=== PATIENT | male | born 1950 | race Caucasian/White ===

== ENCOUNTER → 2016-07-12 | Outpatient (CLI) | payer BC ==
[~2016-07-12] MED LIST: blood pressure PO; cholesterol PO
--- NOTE | 2016-07-12 10:28 | DIAGNOSTIC IMAGING REPORT ---
DOUBLE CONTRAST BARIUM ESOPHAGRAM CLINICAL HISTORY: Single episode of dysphagia with solids. COMPARISON STUDY: No priors. TECHNIQUE: A standard air contrast barium esophagram is performed. Multiple spot images of the esophagus are acquired both upright and prone. FINDINGS: The patient swallowed barium and the barium pill without difficulty. The mucosal pattern is normal. There is no evidence of intrinsic or extrinsic mass lesion. No aspiration was seen. The gastroesophageal junction distended normally. No gastroesophageal reflux could be elicited by having the patient perform the Valsalva maneuver. Fluoroscopy time: 1.1 minutes. Fluoroscopic images: 21 IMPRESSION: Normal barium esophagram. Electronically signed by: Mundo Berry M.D. 07/12/2016 10:26 AM Dictated Date/Time: 07/12/2016 10:25 AM
== END | disposition home or self-care (01) ==
LOC: C.RAD 09:23
PROVIDERS: ATTEND Internal Medicine
DX: R13.10 Dysphagia, unspecified (principal)

== ENCOUNTER → 2016-08-17 | Outpatient (CLI) | payer BC ==
[2016-08-17 09:34] LABS: BASO % 0.6 %; BASO ABS # 0.04 K/uL (0-0.2); COMPLETE YES; EOS % 3.1 %; HEMATOCRIT 41.1 % (42-52); IG% 0.2 %; LYMPH % 27.4 %; LYMPH ABS # 1.77 K/uL (1.2-3.4); MEAN CELL VOLUME 89.9 fL (80-100); MEAN CORPUSCULAR HEMOGLOBIN 30.2 pg (25-34); MEAN CORPUSCULAR HGB CONC 33.6 g/dl (32-36); MEAN PLATELET VOLUME 10.3 fL (7.4-10.4); MONO % 9.5 %; NEUT % 59.2 %; PLATELET COUNT 161 K/uL (130-400); RED BLOOD COUNT 4.57 M/uL (4.7-6.1); WHITE BLOOD COUNT 6.45 K/uL (4.8-10.8)
[2016-08-17 09:35] LABS: URINE APPEARANCE CLEAR (CLEAR); URINE BILIRUBIN NEG (NEG); URINE COLOR YELLOW; URINE EPITHELIAL CELL AUTO 0-5 /lpf (0-5); URINE NITRITE NEG (NEG); URINE SPECIFIC GRAVITY 1.014 (1.000-1.030); UROBILINOGEN NEG (NEG)
[2016-08-17 09:46] LABS: ALT/SGPT 22 U/L (12-78); AST/SGOT 15 U/L (15-37); BLOOD UREA NITROGEN 12 mg/dl (7-18); BUN/CREATININE RATIO 12.4 (10-20); CALCIUM 8.5 mg/dl (8.5-10.1); CARBON DIOXIDE 23 mmol/L (21-32); CHLORIDE 108 mmol/L (98-107); CREATININE 0.93 mg/dl (0.60-1.40); GLUCOSE 92 mg/dl (70-99); SODIUM 141 mmol/L (136-145)
[2016-08-17 09:47] LABS: MANUAL MICROSCOPIC REQUIRED? NO; REVIEW REQ? NO
[2016-08-17 09:52] LABS: ESTIMATED AVERAGE GLUCOSE 111 mg/dl; HA1C FLAG Normal (Normal)
[2016-08-17 09:57] LABS: CHOLESTEROL 188 mg/dl (0-200); CHOLESTEROL/HDL RATIO 2.7; HDL CHOLESTEROL 69 mg/dl; LDL CHOLESTEROL CALCULATED 89 mg/dl; TRIGLYCERIDES 149 mg/dl (0-150); URIC ACID 4.1 mg/dl (2.6-7.2); VERY LOW DENSITY LIPOPROT CALC 30 mg/dl
== END | disposition home or self-care (01) ==
LOC: C.LAB1850 06:44
PROVIDERS: ATTEND Internal Medicine
DX: E78.00 Pure hypercholesterolemia, unspecified (principal)

== ENCOUNTER → 2016-09-16 | Outpatient (CLI) | payer BC ==
--- NOTE | 2016-09-16 12:52 | DIAGNOSTIC IMAGING REPORT ---
CHEST 2 VIEWS ROUTINE CLINICAL HISTORY: R05 [id number] dyspnea COMPARISON STUDY: 06/27/2016 FINDINGS: Mild stable cardiomegaly. Lungs are considered clear. Several old healed right rib fractures. Moderate degenerative change thoracic spine. IMPRESSION: No acute process. Lungs are clear. Electronically signed by: Dewey Weldon M.D. 09/16/2016 12:51 PM Dictated Date/Time: 09/16/2016 12:51 PM
== END | disposition home or self-care (01) ==
LOC: C.RAD1850 12:40
PROVIDERS: ATTEND Internal Medicine
DX: R05 Cough (principal)

== ENCOUNTER 2019-09-08 09:21 | Inpatient (IN) ==
[2019-09-08] MEDS ORDERED: SODIUM CHLORIDE 0.9% 500 ML IV ONE ×2 (09:44→11:40)
[2019-09-08] MEDS ORDERED: dilTIAZem HCl 5 MG/ML 5 ML VIAL IV STA (09:53)
[2019-09-08 09:56] LABS: Basophils # (auto) 0.06 K/uL (0-0.2); Basophils % (auto) 0.5 %; Eosinophils # (auto) 0.55 K/uL (0-0.5); Eosinophils % (auto) 4.3 %; Hemoglobin 15.7 g/dL (14.0-18.0); Immature Granulocytes # (auto) 0.02 K/uL (0.00-0.02); Immature Granulocytes % (auto) 0.2 %; Lymphocytes # (auto) 1.04 K/uL (1.2-3.4); Lymphocytes % (auto) 8.2 %; Mean Corpuscular Hgb Conc 34.1 g/dL (32-36); Mean Corpuscular Volume 93.9 fL (80-100); Monocytes # (auto) 0.51 K/uL (0.11-0.59); Neutrophils # (auto) 10.53 K/uL (1.4-6.5); Neutrophils % (auto) 82.8 %; Platelet Count 199 K/uL (130-400); RDW Coefficient of Variation 13.1 % (11.5-14.5); RDW Standard Deviation 45.1 fL (36.4-46.3); White Blood Count 12.71 K/uL (4.8-10.8)
[2019-09-08 10:06] LABS: Partial Thromboplastin Ratio 0.8; Partial Thromboplastin Time 21.9 Seconds (21.0-31.0); Prothrombin Time 10.5 Seconds (9.0-12.0)
--- NOTE | 2019-09-08 10:08 | XRay Report ---
XR chest 1V portable CLINICAL HISTORY: 69 years-old Male presenting with Chest Pain. TECHNIQUE: Portable upright AP view of the chest was obtained. COMPARISON: 06/27/2016. FINDINGS: Cardiomediastinal silhouette normal. Pulmonary vascular engorgement. Bronchial wall cuffing. . Vascul ar and infrahilar opacities bilaterally. Normal lung aeration. No other focal opacity. No large effus ion or pneumothorax. Degenerative changes of the thoracic spine. Multiple old posterior right rib fra ctures as on prior exam. Upper abdomen normal. IMPRESSION: 1. Vascular engorgement and perihilar infiltrates could represent volume overload and developing pul monary edema versus atypical infection or reactive airways disease. Further evaluation with PA and la teral views could be obtained for better assessment. ACT 112: Negative or not required by law. Electronically signed by: Javier Lassiter M.D. 09/08/2019 10:07 AM
[2019-09-08 10:23] LABS: Albumin Globulin Ratio 0.9 (0.9-2); BUN Creatinine Ratio 12.2 (10-20); Bilirubin,Total 0.8 mg/dl (0.2-1); Calcium 9.4 mg/dl (8.5-10.1); Creatinine Clr Calc Pharmacy 70.6 ml/min; Est GFR (African American) 86.5; Est GFR (Non-African American) 74.6; Globulin 4.4 gm/dl (2.5-4.0); Phosphorus 4.2 mg/dl (2.5-4.9); Total Protein 8.4 gm/dl (6.4-8.2)
[2019-09-08 10:47] LABS: Influenza A virus by PCR Neg for Influ A (Neg); Influenza B virus by PCR Neg for Influ B (Neg)
[2019-09-08] MEDS ORDERED: Heparin IV Low Dose WITH Bolus IV STA (10:49)
[2019-09-08] MEDS ORDERED: OPTIRAY 320 125ml IV PRN (11:06)
[2019-09-08] MEDS ORDERED: HEPARIN SOD 5,000 UNIT/0.5 ML VIAL ONE (11:12)
[2019-09-08] MEDS: HEPARIN SODIUM/DEXTROSE 25,000 UNITS/500 ML BAG IV SCH (11:15)
[2019-09-08 11:17] LABS: Troponin I 0.074 ng/ml (0-0.045)
--- NOTE | 2019-09-08 11:18 | CT Scan Report ---
CT angio chest PE protocol CLINICAL HISTORY: 69 years-old Male presenting with shortness of breath and cough, clinical concern f or pulmonary embolus. TECHNIQUE: Multidetector CT angiography of the chest was performed after administration of intravenou s contrast. 3-D volumetric and/or maximum intensity projection (MIP) images were subsequently reconst ructed for review. IV contrast: 120 mL of Optiray 320. One or more dose lowering techniques were used consistent with the principles of ALARA (as low as reasonably achievable), including automatic expos ure control, mA or kV adjustment to individual patient size, and/or use of iterative reconstruction. COMPARISON: Chest x-ray from earlier today. CT DOSE (mGy.cm): The estimated cumulative dose is 432.47 mGy.cm. FINDINGS: Sat Instructor topogram: Unremarkable. Pulmonary vasculature: The study is suboptimal for the assessment of the pulmonary vascular tree secondary to respiratory mo tion artifact. Allowing for limited image quality, no central filling defect to suggest pulmonary emb olus. Main pulmonary artery is not enlarged. No flattening of the interventricular septum. No intraca rdiac filling defect. No reflux of contrast into the hepatic veins. Remaining chest: Soft tissues: Normal thyroid and thoracic inlet. Numerous small mediastinal and bilateral hilar lymph nodes, nonspecific and likely reactive. Atherosclerosis of the aorta. Trace aortic valve and mild co ronary artery calcification. No pericardial or pleural effusion. Upper abdomen normal. Lungs and airways: No pneumothorax. Central airways patent. Bronchial wall thickening diffusely. Pulm onary arteries are not significantly enlarged relative to adjacent bronchi. No interlobular septal th ickening. Groundglass peribronchial vascular opacities in the right upper lobe. Subpleural limited gr oundglass opacity in the anterior segment of the left upper lobe. The degree of respiratory motion ar tifact moderately degrades evaluation of the lung bases. Musculoskeletal: Multiple old posterior right rib fractures. Degenerative changes of the spine. Flowi ng anterior osteophytosis consistent with diffuse idiopathic skeletal hyperostosis. IMPRESSION: 1. Allowing for suboptimal image quality, no evidence of pulmonary embolus. 2. Patchy peribronchovascular groundglass infiltrates in the right upper lobe and limited subpleural /peripheral ground glass infiltrates in the left upper lobe. Findings are suggestive of an atypical i nfectious or inflammatory etiology. Notably, coronavirus is a diagnostic consideration in the appropr [facility] clinical setting. The report will be called/faxed according to standard departmental protocol. ACT 112: Negative or not required by law. Electronically signed by: Javier Lassiter M.D. 09/08/2019 11:17 AM
[2019-09-08] MEDS ORDERED: PNEUMOCOCCAL ADMINISTRATION CHARGE ONE (11:33)
[2019-09-08] MEDS ORDERED: PNEUMOCOCCAL POLYSACCHARIDES 25 MCG/0.5 ML VIAL/SYR IM ONE (11:33)
--- NOTE | 2019-09-08 12:21 | History & Physical Report ---
Date of Service September 08, 2019 Assessment & Plan (1) Pneumonia: Admit to PCU on telemetry, Vital signs every 4 hours, Blood cultures urine cultures pending, Started empirically ceftriaxone 2 g IV daily and doxycycline 100 mg IV twice daily for lung infiltrates possible pneumonia. Solu-Medrol 40 mg IV twice daily and taper down, Mehdiitussin was seen 10 mils every 6 hours as needed for cough, Xopenex HFA every 4 hours as needed inhaler DVT prophylaxis patient is on heparin drip with bolus because of atrial flutter, As already discussed above and CT angiogram's scan of the chest there was possibility/differential diagnoses of Covid 19 with groundglass opacities seen in left and right lung lobe, which was discussed with the department of infectious control at [facility] and based on other symptoms such as lack of fever, left cold runny nose and sore throat recommendation was that Covid 19 is less likely, and therefore airborne and contact precautions are not necessary. It is also recommended by the ID department that it is not necessary to call Department of Health at this time because the patient condition is less likely Covid 19. Full code Present on Admission?: Yes (2) Atrial flutter with rapid ventricular response: Patient was given diltiazem 15 mg IV x1 which converted him in normal sinus rhythm. Started heparin drip with bolus IV in the ER and continued. Plan to discontinue heparin drip in 24 hours Consult cardiology for abnormal EKG and elevated troponin Troponin x3 with EKG Started metoprolol tartrate 25 mg twice daily for rate control Present on Admission?: Yes (3) Elevated troponin: As discussed above TTE pending Trend down troponin Present on Admission?: Yes (4) Gout: Patient is not in flare. Stable. Continue allopurinol 100 mg p.o. every morning Present on Admission?: Yes (5) Hypercholesterolemia: Fasting lipid panel pending, continue simvastatin 10 mg p.o. nightly. Present on Admission?: Yes (6) Hypertension: Lisinopril 10 mg p.o. every morning Present on Admission?: Yes (7) Insomnia: Continue zolpidem 10 mg p.o. every afternoon as needed. Present on Admission?: Yes History of Present Illness Chief Complaint: palpitations, cough, congestion Primary Care Provider: Angus Yang MD The patient is a 69 years old male with past medical history of hypertension, hypercholesterolemia, diverticulosis who presents to the emergency room with a a flutter, shortness of breath, cough congestion that started approximately last night. Patient states that he has similar episodes approximately every months for the past 3 months but he did not go to the hospital. Patient traveled to [place] with his approximately 3 weeks ago and they were on the train. Patient said that there is no sick contact in the past 2 weeks and his is also doing well. There is nobody sick at home. 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 Patient denies fever, chills, chest pain, abdominal pain, frequency, urgency, sy ncope or near syncope. Labs are reviewed which shows: Sodium 135, potassium 4.8, chloride 104, carbon dioxide 23, anion gap 8, BUN 12, creatinine 1.02, GFR 74.6, glucose 101, hemoglobin from September 02 2024.4, lactate 0.9, calcium 9.4, phosphorus 4.2, total bilirubin 0.8, ALT 26, alkaline phosphatase 61, troponin 0.0 74, BNP 87, total protein 8.4, albumin 4, globulin 4.4, triglycerides 69, cholesterol 182, HDL 81, lipase 109.CTA of the chest confirmed no evidence of pulmonary embolus, patchy ryup-lvyqazw-honhdfhg groundglass infiltrates in the right upper lobe and limited subpleural/peripheral groundglass infiltrate in the left upper lobe. Findings are suggestive of a atypical infection or inflammatory etiology. Notably coronavirus is a diagnostic consideration in the appropriate clinical setting. Since there there was a slight suspicion of coronavirus this was discussed with infectious diseases and the whole chart reviewed. Per department infectious diseases personnel Magy it is less likely that patient is Covid19 virus infected since he does not have runny nose, sore throat, fever, his lymphocytes are normal, his PT is normal. She recommended that there is no indication to ca ll the Department of Health in regard of this case. The decision was made to admit patient to PCU on telemetry for acute respiratory failure with hypoxia and pneumonia, in addition to atrial flutter that already converted to sinus rhythm. Allergies Allergy/AdvReac Type Severity Reaction Status Date / Time shellfish derived Allergy Severe Anaphylaxis Verified 09/08/19 10:40 cat dander Allergy Verified 09/08/19 10:40 Home Medications Home Medications Medication Instructions Recorded Confirmed Type aspirin 81 mg PO QAM 12/05/18 09/08/19 History zolpidem 10 mg tablet 10 mg PO QPM PRN #30 tab 06/14/19 09/06/19 Rx albuterol sulfate 90 mcg/actuation 1 puffs INH Q6H PRN #8.5 gm 06/20/19 09/08/19 Rx aerosol inhaler lisinopril 10 mg tablet 10 mg PO QAM #30 tab 06/25/19 09/08/19 Rx allopurinol 100 mg tablet 100 mg PO QAM #90 tab 08/13/19 09/08/19 Rx simvastatin 10 mg tablet 10 mg PO HS #90 tab 08/13/19 09/08/19 Rx Past Med/Surg History Medical History Diverticular disease Diverticulosis, no h/o diverticulitis Gout Hyperlipidemia Hypertension Insomnia (Chronic) Surgical History History of colonoscopy History of tooth extraction Hx of vasectomy Family History Other No significant family history Social History Preferred Language: Georgian Communication Ability: Effective Crowning Inspector Required: No Beliefs That Will Affect Care: None marital status: Single Current Living Situation: Alone current occupational status: employed current occupation: Professor Other Information That Helps Us Care for You: No Feels Safe at Home: Yes Safety Concerns: Feels Safe At This Time Smoking Status: Former smoker Tobacco Type: cigarettes ; Do You Dip or Chew Tobacco: No ; Smoking End Date: 12/14/1972 ; Second Hand Exposure: No ; Tobacco Cessation Education Requested by Patient: No Hx Alcohol Use: Yes Alcohol type: beer Hx Substance Use: Yes substance use type: marijuana Substance Use Type Other:: chews Last Used Substance: Unknown Review of Systems Review of Systems: All systems reviewed & are unremarkable except as noted in HPI & below Physical Exam Constitutional: WD/WN, vitals as above well developed and + ill appearing Eyes: PERRL, conjunctivae normal, anicteric sclerae ENMT: external ear and nose normal, oropharynx normal Neck: trachea midline, no thyromegaly Respiratory: + respiratory distress, + labored breathing, + uses accessory muscles and + hyperresonance to percussion Auscultation: + crackles and + wheezes Cardiovascular: Rate/Rhythm: + irregularly irregular Heart Sounds: normal S1, normal S2 and + murmur Vessels: dorsalis pedis pulses present Gastrointestinal (Abdomen): normal bowel sounds, soft, nontender, no hepatosplenomegaly Musculoskeletal: no cyanosis or clubbing, extremities motor strength 5/5 Skin: no rashes, warm and dry Neurologic: patellar DTR's 2+ bilat, sensation intact Psychiatric: A+Ox3, euthymic affect Lymphatic: no cervical or axillary lymphadenopathy Results & Data Vital Signs (Past 12 Hours) Vital Signs Temp Pulse Pulse Resp BP BP Pulse Ox 09/08/19 11:30 144 H 16 128/85 97 09/08/19 11:20 112 H 97 09/08/19 11:19 112 H 22 132/83 97 09/08/19 11:17 113 H 132/83 97 09/08/19 10:50 102 H 15 94 09/08/19 10:40 100 H 20 94 09/08/19 10:36 106 H 18 138/86 94 09/08/19 10:30 102 H 18 138/86 94 09/08/19 10:20 98 H 24 94 09/08/19 10:10 96 H 97 H 10 L 130/97 93 09/08/19 10:05 151 H 20 130/97 96 09/08/19 10:00 152 H 23 98 09/08/19 09:50 157 H 26 H 96 09/08/19 09:44 154 H 27 H 93 09/08/19 09:40 158 H 28 H 92 09/08/19 09:33 94 09/08/19 09:31 153 H 159 H 24 152/114 H 152/114 H 93 09/08/19 09:22 36.7 C 150 H 36 H 177/125 H 94 Code Status & VTE Plan Code Status Full code VTE Prophylaxis Plan VTE Prophylaxis will be ordered: Yes PG Care Time/CCT Total # of Minutes Spent Total Time Spent with Patient: Total time spent is greater than 50% in coordination of care (as documented) at patient's floor/unit and/or counseling patient: Coding Level of Care Code 48308 Initial Inpt Care Lvl 3 Diagnoses Pneumonia J18.9 Atrial flutter with rapid ventricular response I48.92 Elevated troponin R79.89 Gout M10.9 Hypercholesterolemia E78.00 Hypertension I10 Insomnia G47.00
[2019-09-08 12:23] LABS: Appearance Urine Clear (Clear); Bilirubin Urine Negative (Negative); Blood Urine Negative (Negative); Color Urine Yellow; Glucose Urine UA Negative (Negative); Ketones Urine 2+ (Negative); Leukocyte Esterase Urine Negative (Negative); Nitrite Urine Negative (Negative); Protein Urine Negative (Negative); Specific Gravity Urine > 1.045 (1.000-1.030); Urobilinogen Urine Negative (Negative)
[2019-09-08] MEDS ORDERED: POLYETHYLENE (MIRALAX) 17 GM PACK PO PRN (13:53)
[2019-09-08] MEDS ORDERED: ALUMINUM/MAGNESIUM SUSP 30 ML UDC PO PRN (13:53)
[2019-09-08] MEDS ORDERED: ZOLPIDEM TARTRATE 10 MG TAB PO PRN (13:53)
[2019-09-08] MEDS ORDERED: MAGNESIUM HYDROXIDE SUSP 30 ML UDC PO PRN (13:53)
[2019-09-08] MEDS ORDERED: GUAIFENESIN/CODEINE 200MG/20MG 10ML UDC PO PRN (13:53)
[2019-09-08] MEDS ORDERED: ACETAMINOPHEN 325 MG TAB PO PRN (13:53)
[2019-09-08] MEDS ORDERED: ONDANSETRON INJ 2 MG/ML 2 ML VIAL IV PRN (13:53)
[2019-09-08] MEDS ORDERED: PERFLUTREN LIPID MICROSPHERE (DEFINITY) IV ONE (14:50)
[2019-09-08] MEDS: METOPROLOL TARTRATE 25 MG TAB PO SCH ×2 (14:51→21:33)
[2019-09-08] MEDS: cefTRIAXone SODIUM 2,000 MG in DEXTROSE 5% 50 ML IV SCH (14:51)
[2019-09-08] MEDS: ASPIRIN 81 MG ECTAB PO SCH (14:52)
[2019-09-08] MEDS: methylPREDNISolone 40 MG in SYRINGE 0 ML IV SCH (14:54)
[2019-09-08 15:31] LABS: Thyroid Stimulating Hormone 0.721 uIu/ml (0.300-4.500); Troponin I 0.442 ng/ml (0-0.045)
[2019-09-08] MEDS: DOXYCYCLINE HYCLATE 100 MG in DEXTROSE 5% 100 ML IV SCH (15:49)
--- NOTE | 2019-09-08 16:00 | XCELERA ---
[id number] \\[id number]
[2019-09-08] MEDS ORDERED: ASPIRIN 81 MG ECTAB PO ONE (16:45)
--- NOTE | 2019-09-08 16:55 | Emergency Department Note ---
Entered by Emani Dumont acting as a scribe for History of Present Illness General Chief complaint: Shortness of Breath/Dyspnea Stated complaint: SOB Time Seen by Provider: 09/08/19 09:33 Source: patient History of Present Illness Onset (ago): month(s) 8 Location: chest Pain Consistency: + other (persistent) Quality: + other (SOB) Associated symptoms: + cough (persistent) and + other (Positive congestion. Negative diarrhea); no fever/chills, no nausea/vomiting and no rash The patient is a 69 year old male who presents to the ED with complaints of SOB. 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 He states his episodes are normally intermittent however, this episode is longer than his previous. Pt denies any fevers, nausea, vomiting, diarrhea. He reports he has an allergy to shellfish where he becomes anaphylactic. He notes he did not have any symptoms of SOB or rashes last night. He is not on blood thinning medication. He notes he had an EKG done in May which was abnormal. Home Medications Home Medications Medication Instructions Recorded Confirmed Type aspirin 81 mg PO QAM 12/05/18 09/08/19 History zolpidem 10 mg tablet 10 mg PO QPM PRN #30 tab 06/14/19 09/06/19 Rx albuterol sulfate 90 mcg/actuation 1 puffs INH Q6H PRN #8.5 gm 06/20/19 09/08/19 Rx aerosol inhaler lisinopril 10 mg tablet 10 mg PO QAM #30 tab 06/25/19 09/08/19 Rx allopurinol 100 mg tablet 100 mg PO QAM #90 tab 08/13/19 09/08/19 Rx simvastatin 10 mg tablet 10 mg PO HS #90 tab 08/13/19 09/08/19 Rx Allergies Allergy/AdvReac Type Severity Reaction Status Date / Time shellfish derived Allergy Severe Anaphylaxis Verified 09/08/19 10:40 cat dander Allergy Verified 09/08/19 10:40 Past Med/Surg History Medical History Diverticular disease Diverticulosis, no h/o diverticulitis Gout Hyperlipidemia Hypertension Insomnia (Chronic) Surgical History History of colonoscopy History of tooth extraction Hx of vasectomy Family History Other No significant family history Social History Preferred Language: Azerbaijani Communication Ability: Effective Windows Admin Required: No Beliefs That Will Affect Care: None marital status: Single Current Living Situation: Alone current occupational status: employed current occupation: Professor Feels Safe at Home: Yes Smoking Status: Former smoker Tobacco Type: cigarettes ; Second Hand Exposure: No ; Hx Alcohol Use: Yes Alcohol type: beer Hx Substance Use: Yes substance use type: marijuana Substance Use Type Other:: chews Last Used Substance: Unknown Review of Systems See HPI for pertinent positives & negatives. and A total of 10 systems reviewed and were otherwise negative Physical Exam Vital Signs Vital Signs - 24 hr 09/08/19 09:22 09/08/19 09:31 09/08/19 09:33 Temperature 36.7 C Temperature Source Oral Pulse Rate 150 H 153 H Pulse Rate [Left] 159 H Pulse Rate from SpO2 Sensor 153 H Respiratory Rate 36 H 24 Respiratory Effort / Characteristics Non-Labored Spontaneous Respiratory Depth Shallow Blood Pressure 177/125 H 152/114 H Blood Pressure [Left Arm] 152/114 H Blood Pressure Mean 142 121 Blood Pressure Mean [Left Arm] 126 Blood Pressure Position [Left Arm] Lying Pulse Oximetry 94 93 94 Oxygen Delivery Method Room Air Nasal Cannula Room Air Oxygen Flow Rate 3 Sepsis Recent Fever Within 48 Hours No Sepsis New/Unexplained Change in Mental Status No Sepsis Action Taken by Nursing No Action Required 09/08/19 09:40 09/08/19 09:44 09/08/19 09:50 Temperature Temperature Source Pulse Rate 158 H 154 H 157 H Pulse Rate [Left] Pulse Rate from SpO2 Sensor 153 H 158 H Respiratory Rate 28 H 27 H 26 H Respiratory Effort / Characteristics Respiratory Depth Blood Pressure Blood Pressure [Left Arm] Blood Pressure Mean Blood Pressure Mean [Left Arm] Blood Pressure Position [Left Arm] Pulse Oximetry 92 93 96 Oxygen Delivery Method Room Air Oxygen Flow Rate 3 Sepsis Recent Fever Within 48 Hours Sepsis New/Unexplained Change in Mental Status Sepsis Action Taken by Nursing 09/08/19 09:53 09/08/19 10:00 09/08/19 10:05 Temperature Temperature Source Pulse Rate 152 H 151 H Pulse Rate [Left] Pulse Rate from SpO2 Sensor 152 H 154 H Respiratory Rate 23 20 Respiratory Effort / Characteristics Nasal Congestion Short of Breath Respiratory Depth Blood Pressure 130/97 Blood Pressure [Left Arm] Blood Pressure Mean 109 Blood Pressure Mean [Left Arm] Blood Pressure Position [Left Arm] Pulse Oximetry 98 96 Oxygen Delivery Method Oxygen Flow Rate Sepsis Recent Fever Within 48 Hours Sepsis New/Unexplained Change in Mental Status Sepsis Action Taken by Nursing 09/08/19 10:10 09/08/19 10:20 09/08/19 10:30 Temperature Temperature Source Pulse Rate 96 H 98 H 102 H Pulse Rate [Left] 97 H Pulse Rate from SpO2 Sensor 96 H 97 H 102 H Respiratory Rate 10 L 24 18 Respiratory Effort / Characteristics Non-Labored Spontaneous Respiratory Depth Blood Pressure 138/86 Blood Pressure [Left Arm] 130/97 Blood Pressure Mean 99 Blood Pressure Mean [Left Arm] 108 Blood Pressure Position [Left Arm] Lying Pulse Oximetry 93 94 94 Oxygen Delivery Method Nasal Cannula Oxygen Flow Rate 2 Sepsis Recent Fever Within 48 Hours Sepsis New/Unexplained Change in Mental Status Sepsis Action Taken by Nursing 09/08/19 10:36 09/08/19 10:40 09/08/19 10:50 Temperature Temperature Source Pulse Rate 100 H 102 H Pulse Rate [Left] 106 H Pulse Rate from SpO2 Sensor 99 H 102 H Respiratory Rate 18 20 15 Respiratory Effort / Characteristics Spontaneous Respiratory Depth Blood Pressure Blood Pressure [Left Arm] 138/86 Blood Pressure Mean Blood Pressure Mean [Left Arm] 103 Blood Pressure Position [Left Arm] Lying Pulse Oximetry 94 94 94 Oxygen Delivery Method Nasal Cannula Oxygen Flow Rate 2 Sepsis Recent Fever Within 48 Hours Sepsis New/Unexplained Change in Mental Status Sepsis Action Taken by Nursing GENERAL: Awake, alert, uncomfortable-appearing, in no distress HENT: Normocephalic, atraumatic. Oropharynx with dry mucous membranes and otherwise unremarkable. EYES: Normal conjunctiva. Sclera non-icteric. NECK: Supple. No nuchal rigidity. FROM. No JVD. RESPIRATORY: Scant intermittent wheezes otherwise clear. Tachypneic. CARDIAC: Tachycardic rate, normal rhythm. Extremities warm and well perfused. Pulses equal. ABDOMEN: Soft, non-distended. No tenderness to palpation. No rebound or guarding. No masses. RECTAL: Deferred. MUSCULOSKELETAL: Chest examination reveals no tenderness. The back is symmetrical on inspection without obvious abnormality. There is no CVA tenderness to palpation. No joint edema. LOWER EXTREMITIES: Calves are equal size bilaterally and non-tender. No edema. No discoloration. NEURO: Normal sensorium. No sensory or motor deficits noted. SKIN: No rash or jaundice noted. Course Course 935: Past medical records reviewed. The patient was evaluated in room C4. A complete history and physical exam was performed. 1015: I reevaluated the patient at this time. The patient is feeling better. Heart rate in 90s. Atrial flutter on monitor. 1045: Discussed the patient's case with Dr. Kovacs, [facility] Hospitalist. The p atient will be evaluated for further management. Administered Medications Aspirin (Ecotrin Ectab) 81 mg PO DAILY [facility] Stop: 10/08/19 14:29 Last Admin: 09/08/19 14:52 Dose: 81 mg Documented by: [id number] Heparin Sodium/Dextrose (Heparin Sodium/Dextrose) 25,000 units in 500 mls @ 21 mls/hr IV .[id number] QUITA; Protocol Stop: 10/08/19 10:59 Last Titration: 09/08/19 19:02 Dose: 1,050 units/hr, 21 mls/hr Documented by: [id number] Cosigned by: [id number] Titration: 09/08/19 18:31 Dose: 1,050 units/hr, 21 mls/hr Documented by: [id number] Cosigned by: [id number] Titration: 09/08/19 15:07 Dose: 900 units/hr, 18 mls/hr Documented by: [id number] Cosigned by: [id number] Admin: 09/08/19 11:15 Dose: 900 units/hr, 18 mls/hr Documented by: [id number] Cosigned by: [id number] Ceftriaxone Sodium 2,000 mg/ (Dextrose) 70 mls @ 100 mls/hr IV Q24H QUITA; Protocol Stop: 09/15/19 14:29 Last Infusion: 09/08/19 15:36 Dose: 0 mls/hr Documented by: [id number] Admin: 09/08/19 14:51 Dose: 100 mls/hr Documented by: [id number] Doxycycline Hyclate 100 mg/ (Dextrose) 110 mls @ 50 mls/hr IV Q12H QUITA Stop: 09/15/19 14:59 Last Infusion: 09/08/19 18:08 Dose: 0 mls/hr Documented by: [id number] Admin: 09/08/19 15:49 Dose: 50 mls/hr Documented by: [id number] Methylprednisolone 40 mg/ (Syringe) 0.64 mls @ 1.5 mls/min IV Q12H QUITA Stop: 10/08/19 14:59 Last Admin: 09/08/19 14:54 Dose: 1.5 mls/min Documented by: [id number] Metoprolol Tartrate (Lopressor) 25 mg PO BID QUITA Stop: 10/08/19 14:29 Last Admin: 09/08/19 14:51 Dose: 25 mg Documented by: [id number] Discontinued Medications Aspirin (Ecotrin Ectab) 81 mg PO NOW ONE Stop: 09/08/19 16:46 Last Admin: 09/08/19 17:52 Dose: 81 mg Documented by: [id number] Diltiazem HCl (Cardizem) 15 mg IV NOW STA Stop: 09/08/19 09:54 Last Admin: 09/08/19 10:03 Dose: 15 mg Documented by: [id number] Cosigned by: [id number] Heparin Sodium (Porcine) (Heparin Sodium (Porcine)) Confirm Administered Dose 5,000 units .ROUTE .STK-MED ONE Stop: 09/08/19 11:13 Last Admin: 09/08/19 11:15 Dose: 4,000 units Documented by: [id number] Cosigned by: [id number] Heparin Sodium/Dextrose () 1 ea IV NOW STA; Protocol Stop: 09/08/19 10:50 Last Admin: 09/08/19 11:15 Dose: 1 ea Documented by: [id number] Sodium Chloride (Nss) 500 mls @ 999 mls/hr IV .Q31M ONE Stop: 09/08/19 10:14 Last Infusion: 09/08/19 10:21 Dose: 0 mls/hr Documented by: [id number] Admin: 09/08/19 09:51 Dose: 999 mls/hr Documented by: [id number] Sodium Chloride (Nss) 500 mls @ 999 mls/hr IV .Q31M ONE Stop: 09/08/19 12:10 Last Infusion: 09/08/19 13:22 Dose: 0 mls/hr Documented by: [id number] Admin: 09/08/19 12:17 Dose: 999 mls/hr Documented by: [id number] Heparin Sodium (Porcine) 4,500 (units/ Syringe) 4.5 mls @ 10 mls/min IV ONE ONE Stop: 09/08/19 19:01 Last Admin: 09/08/19 19:02 Dose: 10 mls/min Documented by: [id number] Cosigned by: [id number] Ioversol (Optiray 320 125ml) 120 ml IV ONCE PRN PRN Reason: Interaction Checking Stop: 09/12/19 11:05 Last Admin: 09/08/19 11:07 Dose: 120 ml Documented by: [id number] Perflutren Lipid Microsphere (Definity) 2 ml IV ONCE ONE Stop: 09/08/19 14:51 Last Admin: 09/08/19 14:51 Dose: 2 ml Documented by: [id number] Critical Care Time Critical Care Time: Yes Total Critical Care Time: 65 I have personally spent greater than 65 minutes of critical care time in the dir ect management of this patient. This includes bedside care, interpretation of diagnostic studies, and testing, discussion with consultants, patient, and family members, and other required patient management activities. This 65 minutes is in excess of all separately billable procedures. Medical Decision Making Differential Diagnosis Differential diagnosis: Etiologies such as infections, reactive airway disease, pneumonia, pneumothorax, COPD, CHF, cardiac ischemia, pulmonary embolism, musculoskeletal, gastr ointestinal, as well as others were entertained. Medical Records Attestation: I reviewed the patient's medical records. Home Medications Current Medication List: was personally reviewed by me Laboratory Data Attestation: I reviewed the patient's lab results. Result diagrams: 09/08/19 09:40 09/08/19 09:40 Lab Results 09/08/19 09/08/19 09/08/19 Range/Units 09:40 09:40 09:40 WBC 12.71 H (4.8-10.8) K/uL RBC 4.90 (4.7-6.1) M/uL Hgb 15.7 (14.0-18.0) g/dL Hct 46.0 (42-52) % MCV 93.9 (80-100) fL MCH 32.0 (25-34) pg MCHC 34.1 (32-36) g/dL RDW Std Deviation 45.1 (36.4-46.3) fL RDW Coeff of Lali 13.1 (11.5-14.5) % Plt Count 199 (130-400) K/uL MPV 10.0 (7.4-10.4) fL Immature Gran % (Auto) 0.2 % Neut % (Auto) 82.8 % Lymph % (Auto) 8.2 % Hockley % (Auto) 4.0 % Eos % (Auto) 4.3 % Baso % (Auto) 0.5 % Immature Gran # (Auto) 0.02 (0.00-0.02) K/uL Neut # (Auto) 10.53 H (1.4-6.5) K/uL Lymph # (Auto) 1.04 L (1.2-3.4) K/uL [place]ockley # (Auto) 0.51 (0.11-0.59) K/uL Eos # (Auto) 0.55 H (0-0.5) K/uL Baso # (Auto) 0.06 (0-0.2) K/uL PT 10.5 (9.0-12.0) Seconds INR 1.0 (0.9-1.1) APTT 21.9 (21.0-31.0) Seconds PTT Ratio 0.8 Sodium 135 L (136-145) mmol/L Potassium (3.5-5.1) mmol/L Chloride 104 (98-107) mmol/L Carbon Dioxide 23 (21-32) mmol/L Anion Gap 8.0 (3-11) BUN 12 (7-18) mg/dl Creatinine 1.02 (0.6-1.4) mg/dl Est Cr Clr Drug Dosing 70.6 ml/min Est GFR ( Amer) 86.5 Est GFR (Non-Af Amer) 74.6 BUN/Creatinine Ratio 12.2 (10-20) Glucose 101 H (70-99) mg/dl Calcium 9.4 (8.5-10.1) mg/dl Phosphorus 4.2 (2.5-4.9) mg/dl Magnesium (1.8-2.4) mg/dl Total Bilirubin 0.8 (0.2-1) mg/dl AST (15-37) U/L ALT 26 (12-78) U/L Alkaline Phosphatase 61 (45-117) U/L Troponin I 0.074 H* (0-0.045) ng/ml NT-Pro-B Natriuret Pep 87 (0-900) pg/ml Total Protein 8.4 H (6.4-8.2) gm/dl Albumin 4.0 (3.4-5.0) gm/dl Globulin 4.4 H (2.5-4.0) gm/dl Albumin/Globulin Ratio 0.9 (0.9-2) Lipase 109 (73-393) U/L Influenza Type A (PCR) (Neg) Influenza Type B (PCR) (Neg) 09/08/19 Range/Units 10:00 WBC (4.8-10.8) K/uL RBC (4.7-6.1) M/uL Hgb (14.0-18.0) g/dL Hct (42-52) % MCV (80-100) fL MCH (25-34) pg MCHC (32-36) g/dL RDW Std Deviation (36.4-46.3) fL RDW Coeff of Lali (11.5-14.5) % Plt Count (130-400) K/uL MPV (7.4-10.4) fL Immature Gran % (Auto) % Neut % (Auto) % Lymph % (Auto) % [place]ock[place] % (Auto) % Eos % (Auto) % Baso % (Auto) % Immature Gran # (Auto) (0.00-0.02) K/uL Neut # (Auto) (1.4-6.5) K/uL Lymph # (Auto) (1.2-3.4) K/uL [place] # (Auto) (0.11-0.59) K/uL Eos # (Auto) (0-0.5) K/uL Baso # (Auto) (0-0.2) K/uL PT (9.0-12.0) Seconds INR (0.9-1.1) APTT (21.0-31.0) Seconds PTT Ratio Sodium (136-145) mmol/L Potassium (3.5-5.1) mmol/L Chloride (98-107) mmol/L Carbon Dioxide (21-32) mmol/L Anion Gap (3-11) BUN (7-18) mg/dl Creatinine (0.6-1.4) mg/dl Est Cr Clr Drug Dosing ml/min Est GFR ( Amer) Est GFR (Non-Af Amer) BUN/Creatinine Ratio (10-20) Glucose (70-99) mg/dl Calcium (8.5-10.1) mg/dl Phosphorus (2.5-4.9) mg/dl Magnesium (1.8-2.4) mg/dl Total Bilirubin (0.2-1) mg/dl AST (15-37) U/L ALT (12-78) U/L Alkaline Phosphatase (45-117) U/L Troponin I (0-0.045) ng/ml NT-Pro-B Natriuret Pep (0-900) pg/ml Total Protein (6.4-8.2) gm/dl Albumin (3.4-5.0) gm/dl Globulin (2.5-4.0) gm/dl Albumin/Globulin Ratio (0.9-2) Lipase (73-393) U/L Influenza Type A (PCR) Neg for Influ A (Neg) Influenza Type B (PCR) Neg for Influ B (Neg) Imaging Data Radiologist's Impression: Radiology results as stated below per my review and the radiologist's interpretation: XR chest 1V portable CLINICAL HISTORY: 69 years-old Male presenting with Chest Pain. TECHNIQUE: Portable upright AP view of the chest was obtained. COMPARISON: 06/27/2016. FINDINGS: Cardiomediastinal silhouette normal. Pulmonary vascular engorgement. Bronchial wall cuffing. . Vascular and infrahilar opacities bilaterally. Normal lung aeration. No other focal opacity. No large effusion or pneumothorax. Degenerative changes of the thoracic spine. Multiple old posterior right rib fractures as on prior exam. Upper abdomen normal. IMPRESSION: 1. Vascular engorgement and perihilar infiltrates could represent volume overload and developing pulmonary edema versus atypical infection or reactive airways disease. Further evaluation with PA and lateral views could be obtained for better assessment. ACT 112: Negative or not required by law. Electronically signed by: Javier Lassiter M.D. 09/08/2019 10:07 AM ECG Data Attestation: I personally reviewed and interpreted this ECG as follows: Indication: + SOB/dyspnea Rate (beats per minute): 152 Rhythm: + other (wide complex tachycardia ) ECG Intervals/blocks: + Left bundle branch block ECG Findings: + Other (no sgarbossa criteria, QT-c 534, QRS 134) Additional Comments: Repeat EKG done at 0946 shows that speed increased to 50 mm/sec, likely a flutter with LBBB Repeat EKG done at 1019 shows normal sinus rhythm, LBBB, no sgarbossa criteria, QT-c 480, QRS 134 Blood Pressure Blood Pressure Findings: Elevated blood pressure Blood Pressure Disposition: further management by hospitalist JIL Narrative The patient is a pleasant 69-year-old gentleman who presents emergency department with worsening shortness of breath and palpitations that began today in the setting of having intermittent transient episodes of similar symptoms in the setting of having mild cough congestion shortness of breath over the past week seen by PCP and thought to be related to allergies per HPI. On arrival the patient is uncomfortable mildly dyspneic with heart rate in the 150s and vital signs otherwise stable. On exam the patient appears clinically dry. He has a scant intermittent wheeze but is otherwise clear. EKG demonstrates wide-complex tachycardia which upon adjustment of time interval to 50 mm/s does appear consistent with atrial flutter with RVR. He was was given IV fluid hydration and 15mg of diltiazem with subsequent increase in rate to 90s. However, patient's left bundle branch block did persist,which does appear new from kimberly contreras's prior EKG in May/2019. CXR with Nonspecific findings of vascular engorgement versus perihilar infiltrates. Given the patient's persistent RVR throughout today could be related to mild venous congestion. WBC 12.7, nonspecific. H/H and platelets within normal limits. Chemistry without ac idosis. Electrolytes and LFTs unremarkable. Troponin is slightly elevated at 0.074 which could be related to demand in the setting of the patient's RVR. However given left bundle branch block reasonable to proceed with close monitoring/trending. Flu negative. The patient continue to feel improved after treatment with diltiazem. This was discussed with Dr. Kovacs, [facility] hospitalist who evaluate the patient for admission. We did agree that given the patient's CHADVASC score of 2, reasonable to proceed with Heparin for now. Patient denies history of bleeding. Agreeable with treatment plan and admission. Additionally, given the patient's mild troponin elevation in the setting of his tachycardia we did agree to proceed with CTA of the chest which was negative for PE however in the straight nonspecific patchy peribronchovascular groundglass infiltrates in the right upper lobe and limited subpleural/peripheral ground glass infiltrates in the left upper lobe. Of note, findings are consistent with atypical infection, which has broad differential and while coronavirus is suggested as 1 of these possible considerations given the patient's lack of exposures or travel this was thought to be less likely. Of note, nursing sugar refinery supervisor did review the patient's presentation with Infection control Marcella, and we agree that the patients nonspecific CT findings in the setting of lack of exposure history is not concerning for coronavirus at this time. Blood cultures drawn. Will defer ABX to admitting team. Cardiac monitoring: An order was placed for continuous cardiac monitoring. The monitor shows a rate of 152 with atrial flutter rhythm with RVR. LBBB. Impression & Plan Atrial flutter with rapid ventricular response, SOB (shortness of breath), Elevated troponin, LBBB (left bundle branch block) Discharge Plan Visit Data *Final* Discharge Date/Time: 09/08/19 13:20 Chief Complaint: Shortness of Breath/Dyspnea Stated Complaint: SOB ED Provider: Catalino Lazcano Discharge Problem: Atrial flutter with rapid ventricular response, SOB (shortness of breath), Elevated troponin, LBBB (left bundle branch block) Patient Disposition: Admitted As Inpatient Discharge Instructions Interventions: ED Discharge Assessment Last Done: 09/08/19 13:20 The scribe's documentation has been prepared under my direction and personally reviewed by me in its entirety. I confirm that the note above accurately reflects all work, treatment, procedures, and medical decision making performed by me.
[2019-09-08 17:41] LABS: Partial Thromboplastin Ratio 1.3; Partial Thromboplastin Time 35.6 Seconds (21.0-31.0)
[2019-09-08] MEDS ORDERED: HEPARIN IV BOLUS 4,500 UNITS in SYRINGE 0 ML IV ONE (19:00)
[2019-09-08] MEDS ORDERED: SIMVASTATIN 10 MG TAB PO SCH (21:00)
[2019-09-08] MEDS: ATORVASTATIN 40 MG TAB PO SCH (21:33)
[2019-09-09] MEDS: DOXYCYCLINE HYCLATE 100 MG in DEXTROSE 5% 100 ML IV SCH ×2 (01:59→14:32)
[2019-09-09] MEDS: methylPREDNISolone 40 MG in SYRINGE 0 ML IV SCH ×2 (01:59→14:32)
[2019-09-09 03:42] LABS: Basophils # (auto) 0.01 K/uL (0-0.2); Basophils % (auto) 0.3 %; Eosinophils # (auto) 0.01 K/uL (0-0.5); Eosinophils % (auto) 0.3 %; Hematocrit (blood only) 40.8 % (42-52); Hemoglobin 13.9 g/dL (14.0-18.0); Immature Granulocytes # (auto) 0.01 K/uL (0.00-0.02); Immature Granulocytes % (auto) 0.3 %; Lymphocytes # (auto) 0.47 K/uL (1.2-3.4); Lymphocytes % (auto) 13.3 %; Mean Corpuscular Hemoglobin 31.7 pg (25-34); Mean Corpuscular Hgb Conc 34.1 g/dL (32-36); Mean Corpuscular Volume 92.9 fL (80-100); Mean Platelet Volume 10.2 fL (7.4-10.4); Monocytes # (auto) 0.11 K/uL (0.11-0.59); Monocytes % (auto) 3.1 %; Neutrophils # (auto) 2.93 K/uL (1.4-6.5); Neutrophils % (auto) 82.7 %; Platelet Count 183 K/uL (130-400); RDW Coefficient of Variation 13.1 % (11.5-14.5); RDW Standard Deviation 44.5 fL (36.4-46.3); Red Blood Count 4.39 M/uL (4.7-6.1); White Blood Count 3.54 K/uL (4.8-10.8)
[2019-09-09 03:54] LABS: Albumin Level 3.2 gm/dl (3.4-5.0); BUN Creatinine Ratio 14.3 (10-20); Calcium 8.8 mg/dl (8.5-10.1); Creatinine Clr Calc Pharmacy 75.8 ml/min; Est GFR (African American) 94.3; Est GFR (Non-African American) 81.3; Potassium 4.2 mmol/L (3.5-5.1)
[2019-09-09 04:00] LABS: Albumin Globulin Ratio 0.9 (0.9-2); Bilirubin,Total 0.7 mg/dl (0.2-1); Globulin 3.6 gm/dl (2.5-4.0); Total Protein 6.8 gm/dl (6.4-8.2)
[2019-09-09 04:01] LABS: Partial Thromboplastin Time 55.2 Seconds (21.0-31.0)
[2019-09-09] MEDS: LEVALBUTEROL TARTRATE 15 GM HFA.AER.AD INH SCH ×6 (05:38→21:10)
[2019-09-09] MEDS ORDERED: ALBUT/IPRATROP 3MG/0.5MG NEB 3 ML VIAL NEB PRN (05:43)
[2019-09-09] MEDS: ASPIRIN 81 MG ECTAB PO SCH (08:41)
[2019-09-09] MEDS: allopurinoL 100 MG TAB PO SCH (08:41)
[2019-09-09] MEDS: METOPROLOL TARTRATE 25 MG TAB PO SCH ×2 (08:41→21:27)
[2019-09-09] MEDS: lisinopriL 10 MG TAB PO SCH (08:42)
[2019-09-09] MEDS: FLUTICASONE/VILANTEROL 200/25MCG 14 PUFFS/INHALER INH SCH (08:44)
[2019-09-09] MEDS ORDERED: ASPIRIN 81 MG ECTAB PO SCH (09:00)
[2019-09-09] MEDS: HEPARIN SODIUM/DEXTROSE 25,000 UNITS/500 ML BAG IV SCH (11:17)
--- NOTE | 2019-09-09 12:45 | Cardiology Consultation ---
Date of Consultation September 09, 2019 Assessment & Plan (1) Cardiomyopathy: He presents with a cardiomyopathy which has not been identified before and with lack of symptoms despite being quite active suggesting that it may be somewhat longstanding rather than acute. His small enzyme rise does not explain it, unless he has had prior myocardial infarction's all that seems a little unlikely. We need to exclude reversible causes, and he needs a cardiac catheterization to determine whether he does have significant coronary artery disease. It may be due to the left bundle branch block. (2) Elevated troponin: He has a slightly elevated troponin this admission which I doubt is related to the cardiomyopathy at this time. He could have coronary disease and could have had small myocardial infarction's in the past but he has no history of it and I think that is less likely. Another possibility is that his tachycardia on presentation resulted in the small enzyme rise, either with nonobstructive coronary disease or with no coronary artery disease. I have scheduled him for catheterization tomorrow. (3) LBBB (left bundle branch block): He presents now with a left bundle branch block which is new since May 22, 2019. This could be a result of his cardiomyopathy or even a cause of his cardiomyopathy although based on timing I do not know that he would have enough time for a left bundle branch block to cause the degree of left ventricular dysfunction he currently has but it is a possibility. (4) SOB (shortness of breath): His shortness of breath is interesting in that one would expect him to have heart failure but his BNP is normal, his chest x-ray does not look like congestive heart failure and his symptoms evidently responded to a nebulizer t reatment and he and his describe expiratory wheezing. I wonder if he has a separate pulmonary condition resulting in his presentation rather than congestive heart failure. He is feeling well now. (5) SVT (supraventricular tachycardia): He presented with some type of wide-complex tachycardia at 150 bpm, the QRS complexes identical to his underlying rhythm therefore this appears to be in SVT. He was in it when he came in, and terminated and then restarted for a brief time before terminating again. I suspect it is a reentrant SVT not atrial flutter (it is regular so I do not suspect atrial fibrillation). Interestingly he did not feel it so it may be a longstanding arrhythmia. We will be starting beta-blockade here which may treat this arrhythmia, if not he may need further evaluation and treatment of it. I doubt it has anything to do with his cardiomyopathy. History of Present Illness Attending Physician: Benitez Portillo MD History of Present Illness This is a 69-year-old gentleman who has a history of hypertension, hypercholesterolemia and diverticulosis who presented with cough and shortness of breath. He also was aware of a rapid heart rate. CT scan of the chest showed no pulmonary embolism, chest x-ray suggested some patchy infiltrates suggestive of infection or inflammation. He did not appear to be in congestive heart failure but evaluation included troponins which were somewhat elevated as well as an echocardiogram which showed some degree of left ventricular dysfunction as well as electrocardiography which showed a left bundle branch block. Of note a prior electrocardiogram done May 22, 2019 did not show left bundle branch block. He presented with a wide-complex tachycardia which appears to be SVT with a left bundle branch block pattern at a heart rate of about 150 bpm. On discussing symptoms with the patient he is very active, he was a runner in the past and works out regularly and has no difficulty with those activities. He has not noticed palpitations until this presentation. [employer] his presentation with shortness of breath he had no difficulty with exertion and that appeared quite recent and his and he had noticed some wheezing and there was a suspicion this might represent bronchospasm as well. He has no peripheral edema, no orthopnea or PND. He has specifically no exertional chest discomfort. Allergies Allergy/AdvReac Type Severity Reaction Status Date / Time shellfish derived Allergy Severe Anaphylaxis Verified 09/08/19 10:40 cat dander Allergy Verified 09/08/19 10:40 Home Medications Home Medications Medication Instructions Recorded Confirmed Type aspirin 81 mg PO QAM 12/05/18 09/08/19 History zolpidem 10 mg tablet 10 mg PO QPM PRN #30 tab 06/14/19 09/06/19 Rx allopurinol 100 mg tablet 100 mg PO QAM #90 tab 08/13/19 09/08/19 Rx atorvastatin 40 mg PO QPM #30 tab 09/11/19 Rx cefdinir 300 mg PO BID #6 cap 09/11/19 Rx doxycycline hyclate 100 mg PO BID #6 tab 09/11/19 Rx fluticasone furoate-vilanterol 1 ea INHALATION DAILY #28 ea 09/11/19 Rx [Breo Ellipta] levalbuterol tartrate [Xopenex HFA] 2 puff INHALATION QID PRN #15 gm 09/11/19 Rx lisinopril 20 mg PO QAM #30 tab 09/11/19 Rx metoprolol succinate 100 mg PO DAILY #30 tab 09/11/19 Rx prednisone 40 mg PO DAILY #10 tab 09/11/19 Rx Patient History Medical History Diverticular disease Diverticulosis, no h/o diverticulitis Gout Hyperlipidemia Hypertension Insomnia (Chronic) Surgical History History of colonoscopy History of tooth extraction Hx of vasectomy Family History Other No significant family history Social History Preferred Language: Romanian Communication Ability: Effective 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 HEENT: Unremarkable Neck: No jugular venous distention, carotid pulses are normal and equal bilaterally without bruits. Pulmonary: Clear to auscultation bilaterally. Cardiac: Regular rhythm with no murmur, gallop or rub. Abdomen: Soft, nontender with normal bowel sounds. Extremities: No edema. Distal pulses intact. Neurologic: No focal findings. Gait is steady. Skin: No rash, ecchymoses or petechiae. Results & Data ([facility]) Vital Signs (Past 12 Hours) Vital Signs Temp Pulse Pulse Resp BP BP Pulse Ox 09/09/19 11:14 36.7 C 67 16 147/79 H 96 09/09/19 08:00 36.6 C 70 18 135/80 95 09/09/19 06:00 71 20 91 09/09/19 03:02 36.5 C 64 18 132/85 94 Laboratory Results Cardiac Enzymes 09/08/19 09/08/19 09/09/19 Range/Units 14:45 20:09 01:56 AST (15-37) U/L Troponin I 0.442 H* 0.279 H* 0.178 H* (0-0.045) ng/ml 09/09/19 Range/Units 01:56 AST 20 (15-37) U/L Troponin I (0-0.045) ng/ml Coagulation 09/08/19 09/09/19 Range/Units 17:17 01:56 APTT 35.6 H 55.2 H* (21.0-31.0) Seconds Lipids 09/09/19 Range/Units 01:56 Triglycerides 48 (0-150) mg/dl Cholesterol 160 (0-200) mg/dl HDL Cholesterol 76 mg/dl Cholesterol/HDL Ratio 2 CBC 09/09/19 Range/Units 01:56 WBC 3.54 L D (4.8-10.8) K/uL RBC 4.39 L (4.7-6.1) M/uL Hgb 13.9 L (14.0-18.0) g/dL Hct 40.8 L (42-52) % Plt Count 183 (130-400) K/uL Neut # (Auto) 2.93 (1.4-6.5) K/uL Lymph # (Auto) 0.47 L (1.2-3.4) K/uL [place] # (Auto) 0.11 (0.11-0.59) K/uL Eos # (Auto) 0.01 (0-0.5) K/uL Baso # (Auto) 0.01 (0-0.2) K/uL Comprehensive Metabolic Panel 09/09/19 Range/Units 01:56 Sodium 136 (136-145) mmol/L Potassium 4.2 (3.5-5.1) mmol/L Chloride 104 (98-107) mmol/L Carbon Dioxide 25 (21-32) mmol/L BUN 14 (7-18) mg/dl Creatinine 0.95 (0.6-1.4) mg/dl Glucose 139 H (70-99) mg/dl Calcium 8.8 (8.5-10.1) mg/dl AST 20 (15-37) U/L ALT 22 (12-78) U/L Alkaline Phosphatase 53 (45-117) U/L Total Protein 6.8 (6.4-8.2) gm/dl Albumin 3.2 L (3.4-5.0) gm/dl Intake and Output 09/08/19 09/09/19 09/09/19 21:59 06:59 14:59 Intake Total 150.50 / 150.50 Balance 150.50 / 150.50 Intake: IV 150.50 / 150.50 Vibramycin 100 mg In D5 100 ml @ 50 mls/hr IV Q12H QUITA Rx#: [id number] HEPARIN SODIUM/DEXTROSE 25,000 150.50 / 150.50 units In 500 ml @ 1,050 UNITS/ HR 21 mls/hr IV .[id number] QUITA Rx #:[id number] Rocephin 2,000 mg In D5w 50 ml @ 100 mls/hr IV Q24H QUITA Rx#: [id number] Oral Other: Weight PG Care Time/CCT Total # of Minutes Spent Total Time Spent with Patient: Total time spent is greater than 50% in coordination of care (as documented) at patient's floor/unit and/or counseling patient: Coding Level of Care Code 11280 Initial Inpt Care Lvl 3 Diagnoses Cardiomyopathy I42.9 Elevated troponin R79.89 LBBB (left bundle branch block) I44.7 SOB (shortness of breath) R06.02 SVT (supraventricular tachycardia) I47.1
[2019-09-09] MEDS: SODIUM CHLORIDE 0.9% 1000ML 1,000 ML IV SCH (13:48)
[2019-09-09] MEDS: cefTRIAXone SODIUM 2,000 MG in DEXTROSE 5% 50 ML IV SCH (13:49)
--- NOTE | 2019-09-09 16:02 | Hospitalist Progress Note ---
Date of Service September 09, 2019 Assessment & Plan (1) Pneumonia: CXR shows patchy peribronchovascular groundglass infiltrates in the right upper lobe and limited subpleural/peripheral ground glass infiltrates in the left upper lobe. Atypical infectious or inflammatory etiology are possible. Pr ocalcitonin was 0.07 on admission. - Presently on ceftriaxone, doxycycline, and steroids - Will taper steroids - Continue abx for now - Initial concern for coronavirus. 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 Additionally, he has not had any fevers at home or in the hospital. (2) SVT (supraventricular tachycardia): Presented with a wide complex tachycardia; however, he now has a new LBBB. The thought is this is a reentrant SVT vs. atrial flutter with aberrancy. - HR was ~150 on admission; he was given diltiazem and switched to sinus with a normal HR. - Has had 1 self-resolving episode today which only lasted <1 minute. - Continue telemetry -> Give diltiazem if he goes into rhythm again. (3) Cardiomyopathy: EF found to be 30-35% on this admission with regional wall motion abnormalities. - Seen by cardiology -> Posit this could be tachycardia-related, LBBB-related, or ischemic. - Continue beta-hemant & ACEi - Plan for catheterization as early as tomorrow with cardiology (4) Elevated troponin: Troponin initially checked after admission for tachycardia. Noted to be 0.44. Has trended down since. New LBBB. - Continue ASA, beta-hemant - Continue heparin gtt for now - Plan for cath as above (5) Hypertension: BP is 130/70 today. - Continue beta-hemant, ACEi (6) Gout: Patient is not in flare. Stable. - Continue allopurinol (7) Hypercholesterolemia: - Continue simvastatin (8) Insomnia: - Continue zolpidem PRN (9) DVT prophylaxis: On heparin gtt for thought of NSTEMI Admission and Anticipated Discharge Date Admission Date: September 08, 2019 Subjective Had another episode overnight where he got short of breath. He spent about two hours short of breath, then finally asked for a DuoNeb and said the shortness of breath resolved right away afterward. Reports no fevers/chills, chest pain, abdominal pain, nausea, or vomiting. Physical Exam Constitutional: WD/WN, vitals as above Eyes: EOM intact bilaterally; no conjunctival abnormality ENMT: external ear and nose normal, oropharynx normal Neck: trachea midline, no thyromegaly normal visual inspection Respiratory: normal respiratory effort, lungs clear to auscultation no respiratory distress Cardiovascular: RRR, no murmur, no edema Gastrointestinal (Abdomen): Inspection/Auscultation: abdomen normal to inspection; abdomen not distended Musculoskeletal: no cyanosis or clubbing, extremities motor strength 5/5 Skin: no rashes, warm and dry Neurologic: moves all extremities and awake Psychiatric: Orientation: alert, oriented to person and cooperative Results & Data ([facility]) Vital Signs (Past 12 Hours) Vital Signs Temp Pulse Resp BP BP Pulse Ox 09/09/19 15:18 36.3 C L 77 20 132/74 97 09/09/19 14:18 88 120/75 09/09/19 11:14 36.7 C 67 16 147/79 H 96 09/09/19 08:00 36.6 C 70 18 135/80 95 09/09/19 06:00 71 20 91 PG Care Time/CCT Total # of Minutes Spent Total Time Spent with Patient: Total time spent is greater than 50% in coordination of care (as documented) at patient's floor/unit and/or counseling patient: Coding Level of Care Code 83335 Subseq Hosp Care Lvl 3 Diagnoses Pneumonia J18.9 SVT (supraventricular tachycardia) I47.1 Cardiomyopathy I42.9 Elevated troponin R79.89 Hypertension I10 Gout M10.9 Hypercholesterolemia E78.00 Insomnia G47.00 DVT prophylaxis Z29.9
--- NOTE | 2019-09-09 19:03 | Billing Data ---
Date of Service September 09, 2019 Coding Level of Care Code 35963 Prolonged Care (int'l) Comment In the patient's room discussing care from 8:00am to 8:15am and 6:00pm to 6:30pm.
[2019-09-09] MEDS: ATORVASTATIN 40 MG TAB PO SCH (21:27)
[2019-09-10] MEDS: DOXYCYCLINE HYCLATE 100 MG in DEXTROSE 5% 100 ML IV SCH ×2 (03:00→14:42)
[2019-09-10 06:13] LABS: Estimated Average Glucose 111 mg/dl; Hemoglobin A1C 5.5 % (4.5-5.6)
[2019-09-10] MEDS: METOPROLOL TARTRATE 25 MG TAB PO SCH (07:50)
[2019-09-10] MEDS: predniSONE 20 MG TAB PO SCH (07:50)
--- NOTE | 2019-09-10 07:51 | Hospitalist Progress Note ---
Date of Service September 10, 2019 Assessment & Plan (1) Cardiomyopathy: EF found to be 30-35% on this admission with regional wall motion abnormalities. LHC on 09/09 showed minimal CAD; NOT thought to be ischemic cardiomyopathy. A1c, TSH, cortisol, and iron studies were all normal this admission. - Seen by cardiology -> Posit this could be tachycardia-related or LBBB-related. - Continue beta-hemant & ACEi -> To be optimized by cardiology. - Also ordering variety of cardiomyopathy labs including HIV, SPEP/UPEP, light chains. Considering a Holter/loop recorder to monitor tachycardia burden, but may optimize meds first, then try. - Respiratory viral panel pending as well, though it seems like viral myocarditis is thought to be less likely. (2) Elevated troponin: Troponin initially checked after admission for tachycardia. Noted to be 0.44. Has trended down since. New LBBB. - Continue ASA, beta-hemant - As above (3) Pneumonia: CXR shows patchy peribronchovascular groundglass infiltrates in the right upper lobe and limited subpleural/peripheral ground glass infiltrates in the left upper lobe. Atypical infectious or inflammatory etiology are possible. Procalcitonin was 0.07 on admission. He had what sounds like an episode of bronchospasm overnight on 09/08. - Presently on ceftriaxone, doxycycline, and steroids - Will taper steroids -> Will continue given his possible bronchospasm episode. - Continue abx for now - Initial concern for coronavirus. 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 Additionally, he has not had any fevers at home or in the hospital. (4) SVT (supraventricular tachycardia): Presented with a wide complex tachycardia; however, he now has a new LBBB. The thought is this is a reentrant SVT vs. atrial flutter with aberrancy. - HR was ~150 on admission; he was given diltiazem and switched to sinus with a normal HR. - Has had multiple self-resolving episodes during his admission which only last <1 minute. - Continue telemetry; consider outpatient monitoring per cardiology -> Give diltiazem if he goes into rhythm again. (5) Hypertension: BP is 110/70 today. - Continue beta-hemant, ACEi (6) Gout: Patient does not have a flare presently. Stable. - Continue allopurinol (7) Hypercholesterolemia: - Continue statin (8) Insomnia: - Continue zolpidem PRN (9) DVT prophylaxis: Lovenox 40mg SQ daily Admission and Anticipated Discharge Date Admission Date: September 08, 2019 Subjective Doing well today. No wheezing at all. No need for breathing treatment. No swelling in the legs. Feels well. Reports no fevers/chills, chest pain, shortness of breath, abdominal pain, nausea, or vomiting. Physical Exam Constitutional: WD/WN, vitals as above Eyes: EOM intact bilaterally; no conjunctival abnormality ENMT: external ear and nose normal, oropharynx normal Neck: trachea midline, no thyromegaly normal visual inspection Respiratory: normal respiratory effort, lungs clear to auscultation no respiratory distress Cardiovascular: RRR, no murmur, no edema Gastrointestinal (Abdomen): Inspection/Auscultation: abdomen normal to inspection; abdomen not distended Musculoskeletal: no cyanosis or clubbing, extremities motor strength 5/5 Skin: no rashes, warm and dry Neurologic: moves all extremities and awake Psychiatric: Orientation: alert, oriented to person and cooperative Results & Data ([facility]) Vital Signs (Past 12 Hours) Vital Signs Temp Pulse Resp BP Pulse Ox 09/10/19 07:27 36.4 C L 69 20 158/91 H 96 09/10/19 03:33 36.4 C L 70 16 132/83 97 09/09/19 23:10 36.4 C L 78 16 142/85 H 96 PG Care Time/CCT Total # of Minutes Spent Total Time Spent with Patient: Total time spent is greater than 50% in coordination of care (as documented) at patient's floor/unit and/or counseling patient: Coding Level of Care Code 06611 Subseq Hosp Care Lvl 3 Diagnoses Cardiomyopathy I42.9 Elevated troponin R79.89 Pneumonia J18.9 SVT (supraventricular tachycardia) I47.1 Hypertension I10 Gout M10.9 Hypercholesterolemia E78.00 Insomnia G47.00 DVT prophylaxis Z29.9
[2019-09-10 08:07] LABS: Basophils # (auto) 0.01 K/uL (0-0.2); Basophils % (auto) 0.1 %; Hematocrit (blood only) 42.8 % (42-52); Hemoglobin 14.8 g/dL (14.0-18.0); Immature Granulocytes # (auto) 0.02 K/uL (0.00-0.02); Immature Granulocytes % (auto) 0.2 %; Lymphocytes # (auto) 1.43 K/uL (1.2-3.4); Lymphocytes % (auto) 11.9 %; Mean Corpuscular Hemoglobin 32.2 pg (25-34); Mean Corpuscular Hgb Conc 34.6 g/dL (32-36); Mean Platelet Volume 9.9 fL (7.4-10.4); Monocytes # (auto) 0.76 K/uL (0.11-0.59); Monocytes % (auto) 6.3 %; Neutrophils # (auto) 9.76 K/uL (1.4-6.5); Neutrophils % (auto) 81.5 %; Platelet Count 187 K/uL (130-400); RDW Coefficient of Variation 13.3 % (11.5-14.5); White Blood Count 11.98 K/uL (4.8-10.8)
[2019-09-10 08:17] LABS: Partial Thromboplastin Ratio 0.8; Partial Thromboplastin Time 22.9 Seconds (21.0-31.0)
[2019-09-10] MEDS ORDERED: HEPARIN (PORCINE) 1000 UNIT/ML 10 ML (CATH LAB USE ONLY) ONE (08:18)
[2019-09-10] MEDS ORDERED: NiCARDipine HCL INJ 2.5 MG/ML 10 ML AMP ONE (08:19)
[2019-09-10] MEDS ORDERED: fentaNYL citrate 100 MCG/2 ML VIAL ONE (08:19)
[2019-09-10] MEDS ORDERED: NITROGLYCERIN/D5W 100MCG/ML 20ML SYR ONE (08:19)
[2019-09-10] MEDS ORDERED: MIDAZOLAM HCL 1 MG/ML 2ML VIAL ONE (08:19)
[2019-09-10] MEDS ORDERED: ASPIRIN 81 MG CHEW ONE (08:22)
[2019-09-10 08:38] LABS: Albumin Globulin Ratio 0.8 (0.9-2); Albumin Level 3.5 gm/dl (3.4-5.0); BUN Creatinine Ratio 10.2 (10-20); Bilirubin,Total 0.7 mg/dl (0.2-1); Calcium 9.1 mg/dl (8.5-10.1); Creatinine Clr Calc Pharmacy 74.2 ml/min; Est GFR (African American) 91.9; Est GFR (Non-African American) 79.3; Ferritin 125.9 ng/ml (8-388); Globulin 4.2 gm/dl (2.5-4.0); Phosphorus 3.4 mg/dl (2.5-4.9); Potassium 3.8 mmol/L (3.5-5.1); Total Protein 7.7 gm/dl (6.4-8.2)
[2019-09-10] MEDS ORDERED: DiphenhydrAMINE HCL 50 MG/ML VIAL ONE (08:59)
[2019-09-10] MEDS ORDERED: HydrALAZINE HCL 20 MG/ML VIAL ONE (09:05)
[2019-09-10] MEDS: ASPIRIN 81 MG ECTAB PO SCH (09:32)
--- NOTE | 2019-09-10 09:57 | Pre Anesthesia Assessment ---
Date of Service September 10, 2019 Pre Sedation Assessment Vital Signs Temp Pulse Pulse Resp BP BP Pulse Ox 09/10/19 09:45 68 20 132/80 97 09/10/19 09:30 71 20 137/86 98 09/10/19 08:19 72 16 161/93 H 98 09/10/19 07:27 36.4 C L 69 20 158/91 H 96 09/10/19 03:33 36.4 C L 70 16 132/83 97 09/09/19 23:10 36.4 C L 78 16 142/85 H 96 09/09/19 18:55 36.3 C L 88 19 149/82 H 97 09/09/19 16:00 76 09/09/19 15:18 36.3 C L 77 20 132/74 97 09/09/19 14:18 88 120/75 09/09/19 11:14 36.7 C 67 16 147/79 H 96 Cardiovascular RRR, no murmur, no edema + ulnar pulses present + capillary refill normal Respiratory normal respiratory effort, lungs clear to auscultation Pre-Sedation Airway Assessment Smoking Status: Former smoker Hx Sleep Apnea: No Short, Thick Neck: No Thyromental Distance: > or= 3.5 Finger Breadths Oral Cavity: + Capped Teeth Mallampati Class: II ASA: ASA3 NPO Status Date of Last Intake of Fluids: 09/09/19 Time of Last Intake of Fluids: 22:00 Date of Last Intake of Solid Food: 09/09/19 Time of Last Intake of Solid Foods: 22:00 Procedure Planning Contraindications for Sedation: none Current Medications Reviewed: Yes Notes The planned sedation has been discussed with the patient. Informed Consent was obtained. I have identified the patient, determined the appropriateness of sedation and have assessed the patient immediately prior to the procedure. All medicine(s) and interventions are by my order.
--- NOTE | 2019-09-10 09:58 | Post Anesthesia Assessment ---
Date of Service September 10, 2019 Post Sedation Assessment Vital Signs Temp Pulse Pulse Resp BP BP Pulse Ox 09/10/19 09:45 68 20 132/80 97 09/10/19 09:30 71 20 137/86 98 09/10/19 08:19 72 16 161/93 H 98 09/10/19 07:27 36.4 C L 69 20 158/91 H 96 09/10/19 03:33 36.4 C L 70 16 132/83 97 09/09/19 23:10 36.4 C L 78 16 142/85 H 96 09/09/19 18:55 36.3 C L 88 19 149/82 H 97 09/09/19 16:00 76 09/09/19 15:18 36.3 C L 77 20 132/74 97 09/09/19 14:18 88 120/75 09/09/19 11:14 36.7 C 67 16 147/79 H 96 Recovery Score Activity: Moves 4 extremities Respiration: Deep Breath/Cough Circulation: +/-20% PreAnes Value Consciousness: Fully Awake Oxygen Saturation: > 92% On Room Air Post Anesthesia Score: 10 Discharge Sedation Level of Care: Phase I Post Sedation Plan On clinical assessment, the patient appears to have tolerated the sedation without complications. Patient is recovering as anticipated. Patient will continue to be monitored by nursing and may be discharged when sedation discharge criteria are met per below protocol. Upon Completions of procedure up to 15 minutes continue every 5 minute vital signs and the P.A.R. score; then discharge to a Phase I or Fast Track to Phase II per the following guidelines: * Discharge Patient to appropriate Phase II area if PAR is 8 or greater or retur n to pre- procedure baseline. The post - procedure orders will be as directed. * If PAR score is less than 8 or not return to pre-procedure baseline then patient will follow Phase I monitoring till PAR is reached for Phase II. The Phase I may be done in procedure room or may call to secure a Phase I area. * If naloxone or flumazenil are used for reversal, hold in Phase I for continued monitoring from when last reversal dose was given for a minimum of 60 minutes or longer pending the nurse and/or physician discretion of patient condition before discharge to Phase II. Please call the Sedation Physician to re-evaluate and complete post-note for discharge to Phase II area. Do NOT discharge from procedure sedation or Phase 1 until post- sedation evaluation note is complete by procedure /sedation MD Sedation Discharge Instructions to be given to the patient at discharge to home.
--- NOTE | 2019-09-10 10:16 | Cardiac Catheterization ---
Cardiac Cath Procedure Full Procedure Date September 10, 2019 Pre-Procedure Diagnosis Pre-Procedure Diagnosis: Non STEMI and Cardiomyopathy AUC Score AUC Score: 09 Post-Procedure Diagnosis Post-Procedure Diagnosis: Mild CAD Procedure(s) Performed Procedure(s) Performed: Coronary Angiography, Left Heart Cath and LV Angiography Medical Assistant Ob Gyn Last Byrne MD Estimated Blood Loss Estimated Blood Loss: <10 ml Medication(s) Medication(s): Fentanyl, Nicardipine, Nitroglycerin and Versed Summary of Findings LMT: normal LAD: large, transapical. No significant disease LCx : large, nondominant. No significant disease RCA: medium, dominant. No significant disease Hemodynamics Rest Ao:: 117/75 mm Hg, mean 93 mm hg Final Ao: 114/78 mm Hg, mean 73 mmHg LV: 98/1 mm Hg, EDP 11 mm Hg Recommendations Recommendations: Cardiac Therapy w/o CABG/PCI Radiation Exposure (mGy) 629 Contrast (mls) 55 ml Procedural Complication(s) None Disposition No Bake Molder Holding/Recovery I attest to the content of the Intraoperative Record and any orders documented therein. Any exceptions are noted below. ACC Data: No Bake Molder Cardiac Status Clinical evaluation leading to the procedure New Cardiomyopathy CAD Presenation: Non STEMI Anginal Classification: No Symptoms Heart Failure: NYHA Class: CCS III Cardiogenic Shock within 24 Hours: No Cardiac Arrest within 24 Hours: No Imaging Studies Past 6 Months: No Stress Studies Past 6 Months: No Coronary Anatomy Dominant: Right Left Main (% Stenosis): Normal LAD (% Stenosis): Mid (mild and calcified < 20-30%) and Distal (early 20%) D2 (% Stenosis): Proximal (30-40%) Circumflex (% Stenosis): Proximal (mild luminal irregularities) and Distal (diffuse mild less than 30%) OM1 (% Stenosis): Ostial (medium ) RCA (% Stenosis): Normal (medium caliber) R PDA (% Stenosis): Normal Left Ventricular Angiography EF (%): 45 Diagnostic Physicians Name: Last Byrne MD Status: Elective Closure Device Percutaneous Entry Location: Radial (TR band) Closure Device: Radial Band Recommendations: Cardiac Therapy w/o CABG/PCI Intraprocedure Events Significant Disection: No Perforation: No Supervising Physician Co-Signing Physician Notes last byrne
[2019-09-10] MEDS: lisinopriL 10 MG TAB PO SCH (10:44)
[2019-09-10] MEDS: allopurinoL 100 MG TAB PO SCH (10:44)
[2019-09-10] MEDS: FLUTICASONE/VILANTEROL 200/25MCG 14 PUFFS/INHALER INH SCH (10:44)
[2019-09-10] MEDS: SODIUM CHLORIDE 0.9% 1000ML 1,000 ML IV SCH ×2 (10:49→18:11)
[2019-09-10] MEDS: LEVALBUTEROL TARTRATE 15 GM HFA.AER.AD INH SCH ×4 (10:50→20:22)
--- NOTE | 2019-09-10 12:27 | Electrocardiogram Report ---
Test Reason : Blood Pressure : / mmHG Vent. Rate : 152 BPM Atrial Rate : 144 BPM P-R Int : 000 ms QRS Dur : 134 ms QT Int : 336 ms P-R-T Axes : 000 -21 108 degrees QTc Int : 534 ms Poor data quality, interpretation may be adversely affected Wide QRS tachycardia , likely SVT with LBBB pattern Left bundle branch block Abnormal ECG When compared with ECG of 22-MAY-2019 08:26, Wide QRS tachycardia has replaced Sinus rhythm Vent. rate has increased BY 87 BPM Confirmed by Terry London ([id number]) on 09/10/2019 12:27:16 PM Referred By: REFERRED SELF Confirmed By:Terry London
--- NOTE | 2019-09-10 12:28 | Electrocardiogram Report ---
Test Reason : Blood Pressure : / mmHG Vent. Rate : 153 BPM Atrial Rate : 153 BPM P-R Int : 000 ms QRS Dur : 128 ms QT Int : 328 ms P-R-T Axes : 000 -21 113 degrees QTc Int : 523 ms Poor data quality, interpretation may be adversely affected Wide QRS tachycardia , likely SVT with LBBB pattern Left bundle branch block Abnormal ECG When compared with ECG of 08-SEP-2019 09:36, (unconfirmed) No significant change was found Confirmed by Terry London ([id number] on 09/10/2019 12:27:52 PM Referred By: REFERRED SELF Confirmed By:Terry London
--- NOTE | 2019-09-10 12:29 | Electrocardiogram Report ---
Test Reason : Blood Pressure : / mmHG Vent. Rate : 096 BPM Atrial Rate : 096 BPM P-R Int : 174 ms QRS Dur : 134 ms QT Int : 380 ms P-R-T Axes : 052 -25 124 degrees QTc Int : 480 ms Poor data quality, interpretation may be adversely affected Normal sinus rhythm Left bundle branch block Abnormal ECG When compared with ECG of 08-SEP-2019 09:46, (unconfirmed) Sinus rhythm has replaced Supraventricular tachycardia Vent. rate has decreased BY 57 BPM Confirmed by Terry London ([id number]) on 09/10/2019 12:29:39 PM Referred By: REFERRED SELF Confirmed By:Terry London
[2019-09-10] MEDS: cefTRIAXone SODIUM 2,000 MG in DEXTROSE 5% 50 ML IV SCH (14:05)
--- NOTE | 2019-09-10 14:26 | Electrocardiogram Report ---
Test Reason : Blood Pressure : / mmHG Vent. Rate : 083 BPM Atrial Rate : 083 BPM P-R Int : 170 ms QRS Dur : 142 ms QT Int : 506 ms P-R-T Axes : 027 -17 175 degrees QTc Int : 594 ms Normal sinus rhythm Left bundle branch block Abnormal ECG When compared with ECG of 08-SEP-2019 10:19, (unconfirmed) T wave inversion now evident in Anterior leads Confirmed by Terry London ([id number]) on 09/10/2019 2:25:40 PM Referred By: REFERRED SELF Confirmed By:Terry London
--- NOTE | 2019-09-10 18:30 | Billing Data ---
Date of Service September 10, 2019 Coding Level of Care Code 09987 Prolonged Care (int'l) Comment In the patient's room from 8:45am to 9:00am and from 4:15pm to 4:45pm.
[2019-09-10] MEDS: ATORVASTATIN 40 MG TAB PO SCH (20:35)
[2019-09-10] MEDS ORDERED: METOPROLOL TARTRATE 50 MG TAB PO SCH (21:00)
[2019-09-11] MEDS: DOXYCYCLINE HYCLATE 100 MG in DEXTROSE 5% 100 ML IV SCH (02:46)
[2019-09-11 06:15] LABS: Basophils # (auto) 0.03 K/uL (0-0.2); Basophils % (auto) 0.3 %; Eosinophils # (auto) 0.12 K/uL (0-0.5); Eosinophils % (auto) 1.3 %; Hematocrit (blood only) 38.3 % (42-52); Hemoglobin 12.8 g/dL (14.0-18.0); Immature Granulocytes # (auto) 0.01 K/uL (0.00-0.02); Immature Granulocytes % (auto) 0.1 %; Lymphocytes # (auto) 2.24 K/uL (1.2-3.4); Mean Corpuscular Hemoglobin 31.2 pg (25-34); Mean Corpuscular Hgb Conc 33.4 g/dL (32-36); Mean Corpuscular Volume 93.4 fL (80-100); Mean Platelet Volume 10.1 fL (7.4-10.4); Monocytes # (auto) 0.69 K/uL (0.11-0.59); Monocytes % (auto) 7.7 %; Neutrophils # (auto) 5.88 K/uL (1.4-6.5); Neutrophils % (auto) 65.6 %; Platelet Count 159 K/uL (130-400); RDW Coefficient of Variation 13.5 % (11.5-14.5); RDW Standard Deviation 46.1 fL (36.4-46.3); White Blood Count 8.97 K/uL (4.8-10.8)
[2019-09-11 06:52] LABS: BUN Creatinine Ratio 13.1 (10-20); Calcium 8.5 mg/dl (8.5-10.1); Est GFR (African American) 100.6; Est GFR (Non-African American) 86.8; Potassium 3.9 mmol/L (3.5-5.1)
[2019-09-11 07:02] LABS: Albumin Globulin Ratio 0.9 (0.9-2); Bilirubin,Total 0.6 mg/dl (0.2-1); Globulin 3.2 gm/dl (2.5-4.0); Total Protein 6.2 gm/dl (6.4-8.2)
[2019-09-11 07:34] LABS: Lyme Ab IgG w/WB Rflx Negative (Negative); Lyme Ab IgM w/WB Rflx Negative (Negative)
[2019-09-11] MEDS ORDERED: METOPROLOL SUCC 25MG EXT REL TAB PO SCH (09:00)
[2019-09-11] MEDS ORDERED: ENOXAPARIN INJ 40 MG/0.4 ML SYR SQ SCH (09:00)
[2019-09-11] MEDS ORDERED: METOPROLOL SUCC 50MG EXT REL TAB PO SCH (09:00)
[2019-09-11] MEDS: FLUTICASONE/VILANTEROL 200/25MCG 14 PUFFS/INHALER INH SCH (09:01)
[2019-09-11] MEDS: lisinopriL 10 MG TAB PO SCH (09:01)
[2019-09-11] MEDS: predniSONE 20 MG TAB PO SCH (09:01)
[2019-09-11] MEDS: LEVALBUTEROL TARTRATE 15 GM HFA.AER.AD INH SCH (09:01)
[2019-09-11] MEDS: ASPIRIN 81 MG ECTAB PO SCH (09:01)
[2019-09-11] MEDS: allopurinoL 100 MG TAB PO SCH (09:01)
[2019-09-11] MEDS ORDERED: lisinopriL 10 MG TAB PO ONE (11:09)
--- NOTE | 2019-09-11 12:11 | Discharge Summary ---
Date of Service September 11, 2019 Admission HPI Per Admitting Provider The patient is a 69 years old male with past medical history of hypertension, hypercholesterolemia, diverticulosis who presents to the emergency room with a a flutter, shortness of breath, cough congestion that started approximately last night. Patient states that he has similar episodes approximately every months for the past 3 months but he did not go to the hospital. Patient traveled to [place] with his approximately 3 weeks ago and they were on the train. Patient said that there is no sick contact in the past 2 weeks and his is also doing well. There is nobody sick at home. 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 Patient denies fever, chills, chest pain, abdominal pain, frequency, urgency, syncope or near syncope. Labs are reviewed which shows: Sodium 135, potassium 4.8, chloride 104, carbon dioxide 23, anion gap 8, BUN 12, creatinine 1.02, GFR 74.6, glucose 101, hemoglobin from September 02 2024.4, lactate 0.9, calcium 9.4, phosphorus 4.2, total bilirubin 0.8, ALT 26, alkaline phosphatase 61, troponin 0.0 74, BNP 87, total protein 8.4, albumin 4, globulin 4.4, triglycerides 69, cholesterol 182, HDL 81, lipase 109.CTA of the chest confirmed no evidence of pulmonary embolus, patchy lzbc-[id number]-ymagslrl groundglass infiltrates in the right upper lobe and limited subpleural/peripheral groundglass infiltrate in the left upper lobe. Findings are suggestive of a atypical infection or inflammatory etiology. Notably coronavirus is a diagnostic consideration in the appropriate clinical setting. Since there there was a slight suspicion of coronavirus this was discussed with infectious diseases and the whole chart reviewed. Per department infectious diseases personnel Magy it is less likely that patient is Covid19 virus infected since he does not have runny nose, sore throat, fever, his lymphocytes are normal, his PT is normal. She recommended that there is no indication to call the Department of Health in regard of this case. The decision was made to admit patient to PCU on telemetry for acute respiratory failure with hypoxia and pneumonia, in addition to atrial flutter that already converted to sinus rhythm. Principal Diagnosis Nonischemic cardiomyopathy, Chronic systolic CHF, Acute bronchitis Discharge Exam Constitutional WD/WN, vitals as above Eyes + anicteric sclerae ENMT external ear and nose normal, oropharynx normal Neck trachea midline, no thyromegaly Respiratory normal respiratory effort, lungs clear to auscultation Cardiovascular RRR, no murmur, no edema Chest (Breasts) Chest: normal inspection of chest Gastrointestinal (Abdomen) normal bowel sounds, soft, nontender, no hepatosplenomegaly Musculoskeletal Extremities: extremities normal to inspection; no cyanosis and no clubbing Skin no rashes, warm and dry Neurologic moves all extremities and awake; no focal motor deficits Psychiatric A+Ox3, euthymic affect Lymphatic no lymphedema Discharge Data Allergies Allergy/AdvReac Type Severity Reaction Status Date / Time shellfish derived Allergy Severe Anaphylaxis Verified 09/08/19 10:40 cat dander Allergy Verified 09/08/19 10:40 Consultations 09/08/19 10:41 ED Decision to Admit Stat 09/08/19 13:53 Consult Cardiology Routine Procedures Performed Operation Date: 09/10/19 09:00 Actual Procedures p Cath, Left with Cors and Vent - Paolo Johnson MD s Cineradiography w/Routine Exam - Paolo Johnson MD Operation Date: 09/10/19 09:00 <No data on this case meets the specified criteria> Ordered Studies 09/08/19 10:49 CT angio chest PE protocol Stat 09/10/19 06:35 CL Cath Imgs for PACS use only Routine CXR ECHO Hospital Course (1) Cardiomyopathy: EF found to be 30-35% on this admission with regional wall motion abnormalities. LHC on 09/09 showed minimal CAD; NOT thought to be ischemic cardiomyopathy. A1c, TSH, cortisol, and iron studies were all normal this admission. - Seen by cardiology -> Posit this could be tachycardia-related (with AVNRT,SVT with wide complex seen on tele here) or LBBB-related. Could be viral cardiomyopathy or other--> SPEP, UPEP, JARON levels pending at time of discharge Viral BioFire panel negative -Started Toprol XL 100mg daily and increased lisinopril to 20mg daily - Considering a Holter/loop recorder to monitor tachycardia burden, but may optimize meds first, then try. -no signs or symptoms of acute CHF--> OSB on admission related to bronchospasm from likely asthma/allergies as below-improved with bronchodilators alone; was not diuresed Follow up with Cardiology as outpt and will consider switching to Coreg and Entresto at that time (2) Elevated troponin: Troponin initially checked after admission for tachycardia. Noted to be 0.44. Has trended down since. New LBBB. - Continue ASA, beta-hemant - As above, may be related to demand ischemia in setting of tachycardia and low EF Cardiac cath as above (3) Pneumonia: CXR shows patchy peribronchovascular groundglass infiltrates in the right upper lobe and limited subpleural/peripheral ground glass infiltrates in the left upper lobe. Atypical infectious or inflammatory etiology are possible. Procalcitonin was 0.07 on admission. He had what sounds like an episode of bronchospasm overnight on 09/08. Also was treated with prednisone and abx courses in the last 2-3 months as an outpt Suspect allergy-induced asthma Treated here with ceftriaxone and doxy and prednisone, had improvement - dc on cefdinir, doxycycline for 3 more days and steroid taper - Initial concern for coronavirus noted on CT report by Radiology--> he never had a fever here or as outpt and no other signs or symptoms of this. 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 The thought is this is a reentrant SVT vs. atrial flutter with aberrancy. - HR was ~150 on admission; he was given diltiazem and switched to sinus with a normal HR. - Has had multiple self-resolving episodes during his admission which only last <1 minute. Improved then after titrating up on beta hemant --continue Toprol XL 100mg daily -consider outpatient monitoring per cardiology (5) Hypertension: BP s went up on last day of admission due to white coat HTN and prednisone use-pt anxious to leave hospital - Continue beta-hemant, ACEi increased to 20mg for cardiomyopathy anyway -follow as outpt (6) Wheezing: as above -treating with prednisone and will be referred to [facility] as outpt for eosinophilia (7) Chronic systolic CHF (congestive heart failure): as above (8) Peripheral eosinophilia: as above (9) Abnormal chest CT: as above, bilat upper lobe infiltrates Recommend repeat Chest CT in 6 weeks -discussed with PCP and patient at time of discharge (10) LBBB (left bundle branch block): new onset, as above (11) Insomnia: - Continue zolpidem PRN (12) Hypercholesterolemia: - Continue statin but was changed to atorva from simva due to mild CAD -continue ASA 81mg daily (13) Gout: Patient does not have a flare presently. Stable. - Continue allopurinol (14) DVT prophylaxis: Lovenox 40mg SQ daily Dispo-stable for dc to home Total Time Total Time Spent Total Time Spent (In Minutes): 40 min Total Time Includes: Examination of the Patient, Discharge Planning, Medication Reconciliation and Communication With Other Providers (PCP, Cardiology) Discharge Plan Discharge Items Patient Disposition: Home - Self-Care Reason For Visit: DRY COUGH, FLU LIKE SYMPTOMS Discharge Diagnosis: Nonischemic cardiomyopathy, systolic congestive heart failure, acute bronchitis Condition on Discharge: Good Activity: As commented below Bathing: Keep incision dry Exercise/Sports: Wait until after follow-up appointment Driving/Machine Use: Resume 2 days after discharge Non-emergency contact: Primary Care Provider and [employer] Call non-emergency contact if: you have any medication questions, your symptoms worsen, your temperature is above 101, your wound has increased redness, your wound has increased drainage and your wound pain has increased Follow-up/Referrals: Angus Yang MD [Primary Care Provider] - 09/17/19 2:00 pm () Terry London MD [Physician] - 10/02/19 11:30 am () Diet: Heart Healthy and Low Sodium (2gm) Addtl Attending Provider Instructions: Please finish out the course of prednisone and antibiotics for your bronchitis as prescribed. Your viral panel was negative and you may have allergy-related asthma. Dr. Yang plans on referring you to an Food Safety Field Specialist as an outpatient for further allergy testing. You should continue on the Breo Ellipta inhaler every day to control asthma symptoms and use the Levalbuterol inhaler as needed for wheezing. As for your new heart failure/cardiomyopathy, further tests were sent out and are pending at the time of discharge as to the cause. Several things have been ruled out as a cause so far to include coronary artery disease, Lyme disease, hemochromatosis,thyroid dysfunction and adrenal insufficiency. Drs. Yang and Surya will follow up on the other results for you. You were started on Metoprolol succinate and an increased dose of lisinopril to improve your heart function as well as to better control your tachycardia (fast heart rate) and blood pressure. You were found to have some mild coronary artery disease on your cardiac catheterization and therefore you should be on a high intensity statin drug--> your simvastatin was changed to atorvastatin. Please follow up with Dr. Yang in one week and Dr. London in 2 weeks as will be scheduled for you. Of note, there was an abnormality on your chest CT and it is recommended that you have a repeat CT of the chest in 6 weeks-Dr. Yang will order this for you. Call your Primary Care doctor if any of the following symptoms or problems start or get worse: * Shortness of breath or difficulty breathing * Wake up at night short of breath * Chest pain * Cough * Swelling of your hands, feet, or legs * More fatigued or tired with your normal activity * Palpitations - sudden fast heart beats WEIGHT * Weigh yourself every morning after using the bathroom. * Use the same scale. * Wear the same amount of clothing. * Write your weight down on a chart. * Call your Primary Care doctor if you gain more than 2-3 pounds in 1-2 days. MEDICATIONS * Use this discharge instruction sheet for medication instructions. * Take your medications at the time your doctor ordered. * Do not skip a dose of your medicines. * If you miss a dose of medicine, take it as soon as possible, but DO NOT DOUBLE A DOSE. * Read your medicine information when you get home. * Know all of the side effects of your medicine. If in doubt, ask your pharmacist * Call your Primary Care doctor's office if you have any side effects. * Be sure all of your doctors know what medicine and herbs you take (including cold, flu, and herbal medicine). Take the following with you to your follow-up doctor appointments: * Weight Chart * Medication List * List of questions Do not drink excessive alcohol, beer or wine. ACTIVITY RECOMMENDATIONS: Excess manipulation of the wrist should be avoided for the next 24-48 hours. * No lifting over 2 pounds (approximately a 1/2 gallon of milk) with the utilized arm for 24 hours. * No strenuous activity such as bowling or tennis for 3 days. * Keep the site of the procedure covered with a bandage for 24 hours. *You may shower the day after the procedure. Do not take a tub bath or submerge the puncture site in water for the next 3 days. *Do not operate any motorized equipment for 3 days. SPECIAL CARE INSTRUCTIONS: The site may be slightly bruised and sore following your procedure. Should any of the following occur, contact the Dr. who performed your procedure. 1. Redness/inflammation, swelling, chills, or fever, or colored drainage at procedure site within 3-7 days after your procedure. 2. Coldness, discoloration, ongoing numbness, severe pain, or swelling. Expect mild tingling of hand and tenderness at the puncture site for up to three days. If this persists beyond three days, or other symptoms develop, notify the Dr. who performed your procedure. BLEEDING: If the procedure site on your wrist begins to bleed, do not panic 1. Place 1 or 2 fingers firmly just slightly above the insertion site to stop the bleeding. You may be able to feel your pulse as you hold pressure. 2. Lift your finger after 5 minutes to see if the bleeding has stopped. 3. Once the bleeding has stopped, gently wipe the wrist area clean with a bandage. * If the bleeding from your wrist does not stop after 10 minutes, or if there is a large amount of bleeding or spurting, call 911 ([address] not drive yourself to the hospital). SKIN IRRITATION: * You may experience some redness and/or swelling in the area where radiation was administered. If any skin irritation occurs, please contact your family physician. FOLLOW UP VISIT: Keep any scheduled doctor appointments. Pending Studies at Discharge: Yes Studies:: SPEP, UPEP, IgE, JARON level Stand-Alone Forms: My [facility] [employer] Medications and DC Order Prescriptions: New levalbuterol tartrate [Xopenex HFA] 45 mcg/actuation Hfa Aerosol Inhaler 2 puff inhalation QID PRN (Reason: shortness of breath or wheezing) Qty: 15 RF: 0 lisinopril 20 mg Tablet 20 mg PO QAM Qty: 30 RF: 0 atorvastatin 40 mg Tablet 40 mg PO QPM Qty: 30 RF: 0 metoprolol succinate 100 mg tablet extended release 24 hr 100 mg PO DAILY Qty: 30 RF: 0 prednisone 20 mg Tablet 40 mg PO DAILY Qty: 10 RF: 0 Breo Ellipta 200-25 mcg/dose Blister With Device 1 ea inhalation DAILY Qty: 28 RF: 0 doxycycline hyclate 100 mg tablet 100 mg PO BID Qty: 6 RF: 0 cefdinir 300 mg capsule 300 mg PO BID Qty: 6 RF: 0 Continued zolpidem 10 mg tablet 10 mg PO QPM PRN (Reason: Insomnia) Qty: 30 RF: 3 allopurinol 100 mg tablet 100 mg PO QAM Qty: 90 RF: 1 aspirin 81 mg Tablet,Delayed Release (Dr/Ec) 81 mg PO QAM RF: 0 Discontinued simvastatin 10 mg tablet 10 mg PO HS Qty: 90 RF: 1 albuterol sulfate 90 mcg/actuation HFA aerosol inhaler 1 puffs INH Q6H PRN (Reason: shortness of breath or wheezing) Qty: 8.5 RF: 0 lisinopril 10 mg tablet 10 mg PO QAM Qty: 30 RF: 5 Discharge Orders: Discharge Order (Routine); Ordered 09/11/19 Ordered By: Kalyn Carlin Admission Data Admit Date/Time: 09/08/19 11:15 Attending Provider: Kalyn Carlin Admit Provider: Constance Kovacs Primary Care Provider: Angus Yang Other Providers: Terry London ; Benitez Portillo Coding Level of Care Code D/C Day Management >30 mins Diagnoses Cardiomyopathy I42.9 Elevated troponin R79.89 Pneumonia J18.9 SVT (supraventricular tachycardia) I47.1 Hypertension I10 Wheezing R06.2 Chronic systolic CHF (congestive heart failure) I50.22 Peripheral eosinophilia D72.[address] R93.89 LBBB (left bundle branch block) I44.7 Insomnia G47.00 Hypercholesterolemia E78.00 Gout M10.9 DVT prophylaxis Z29.9
--- NOTE | 2019-09-11 12:15 | Cardiology Progress Note ---
Date of Service September 11, 2019 Assessment & Plan (1) Cardiomyopathy: He presents with a cardiomyopathy which has not been identified before and with lack of symptoms despite being quite active suggesting that it may be somewhat longstanding rather than acute. He does have nonobstructive coronary artery disease which does not explain the cardiomyopathy which is evidently nonischemic, cause unknown. It may be due to the left bundle branch block. (2) Elevated troponin: He has a slightly elevated troponin this admission which I doubt is related to the cardiomyopathy at this time. Another possibility is that his tachycardia on presentation resulted in the small enzyme rise. It did peak and then drop suggestive of this as an etiology rather than an ongoing myocarditis. (3) LBBB (left bundle branch block): He presents now with a left bundle branch block which is new since May 22, 2019. This could be a result of his cardiomyopathy or even a cause of his cardiomyopathy although based on timing I do not know that he would have enough time for a left bundle branch block to cause the degree of left ventricular dysfunction he currently has but it is a possibility. (4) SOB (shortness of breath): His shortness of breath is interesting in that one would expect him to have heart failure but his BNP is normal, his chest x-ray does not look like con gestive heart failure and his symptoms evidently responded to a nebulizer treatment and he and his describe expiratory wheezing. I wonder if he has a separate pulmonary condition resulting in his presentation rather than congestive heart failure. He is feeling well now. (5) SVT (supraventricular tachycardia): He presented with some type of wide-complex tachycardia at 150 bpm, the QRS complexes identical to his underlying rhythm therefore this appears to be in SVT. He was in it when he came in, and terminated and then restarted for a brief time before terminating again. He has had other brief episodes on telemetry. I suspect it is a reentrant SVT not atrial flutter (it is regular so I do not suspect atrial fibrillation). Interestingly he did not feel it so it may be a longstanding arrhythmia. We will be starting beta-blockade here which may treat this arrhythmia, if not he may need further evaluation and treatment of it. I doubt it has anything to do with his cardiomyopathy. (6) CAD (coronary artery disease): He had now has catheterization proven coronary artery disease but it is nonobstructive. He should be on risk factor modification for that but it probably does not relate to his presentation and I doubt he has symptoms related to it. Admission and Anticipated Discharge Date Admission Date: September 08, 2019 Subjective He is feeling well today, no discomfort at his catheterization site. Physical Exam Physical Exam: Constitutional: Alert, cooperative and in no distress. HEENT: Unremarkable Neck: No jugular venous distention, carotid pulses are normal and equal bilaterally without bruits. Pulmonary: Clear to auscultation bilaterally. Cardiac: Regular rhythm with no murmur, gallop or rub. Abdomen: Soft, nontender with normal bowel sounds. Extremities: No edema. Distal pulses intact. Neurologic: No focal findings. Gait is steady. Skin: No rash, ecchymoses or petechiae. His catheterization site is clean and dry. Results & Data ([facility]) Vital Signs (Past 12 Hours) Vital Signs Temp Pulse Pulse Pulse Resp BP BP 09/11/19 12:08 36.6 C 72 69 16 134/78 183/105 H 09/11/19 11:36 36.6 C 69 16 183/105 H 09/11/19 10:13 81 09/11/19 07:07 36.7 C 72 18 170/97 H Pulse Ox 09/11/19 12:08 97 09/11/19 11:36 97 09/11/19 10:13 09/11/19 07:07 96 PG Care Time/CCT Total # of Minutes Spent Total Time Spent with Patient: Total time spent is greater than 50% in coordination of care (as documented) at patient's floor/unit and/or counseling patient: Coding Level of Care Code 48672 Subseq Hosp Care Lvl 3 Diagnoses Cardiomyopathy I42.9 Elevated troponin R79.89 LBBB (left bundle branch block) I44.7 SOB (shortness of breath) R06.02 SVT (supraventricular tachycardia) I47.1 CAD (coronary artery disease) I25.10
[2019-09-12] MEDS ORDERED: lisinopriL 20 MG TAB PO SCH (09:00)
[2019-09-13 10:09] LABS: Albumin 3.4 g/dL (3.8-4.8); Alpha 1 Globulin 0.2 g/dL (0.2-0.3); Alpha 2 Globulin 0.7 g/dL (0.5-0.9); Angiotensin Converting Enzyme 6 U/L (9-67); Beta-1-Globulin 0.4 g/dL (0.4-0.6); Beta-2-Globulin 0.3 g/dL (0.2-0.5); Free Kappa 10.4 mg/L (3.3-19.4); Free Kappa/Lambda Ratio 0.91 (0.26-1.65); Free Lambda 11.4 mg/L (5.7-26.3); Gamma Globulin 0.7 g/dL (0.8-1.7); Monoclonal Protein Band 1 DNR g/dL (NONE DETECTED); Monoclonal Protein Band 2 DNR g/dL (NONE DETECTED); Monoclonal Protein Band 3 DNR g/dL (NONE DETECTED); Total Protein 5.7 g/dL (6.1-8.1)
== END 2019-09-11 12:28 | disposition home or self-care (01) | DRG 286 ==
LOC: ED 09:21 → 2S 11:15 → SUATTDRO 11:15 → 2S 13:20